=== PATIENT | female | born 1970 | race Caucasian/White ===

== ENCOUNTER → 2017-10-31 13:42 | Outpatient (CLI) | payer BC, SELFPAY ==
--- NOTE | 2017-10-31 13:54 | MR_ITS ---
MR lumbar spine wo con, MR 3-d myelogram/MRCP HISTORY: Mid back pain when bending forward or backward X 3-4 Months. Low back pain X years. Bilateral leg numbness, bursitis in hips. ITS.REASON: LOW BACK PAIN, BILATERAL LOWER EXTREMITY PAIN ORDERING PHYSICIAN: Thai Sharma PATIENT AGE: 47 years COMPARISON: Prior X-Ray 07/10/10 TECHNIQUE: Standard multiplanar multiecho sequences are performed without contrast. 3-D MIP and myelographic images are also rendered and reviewed FINDINGS: There is normal alignment. The spinal cord ends at the T12-L1 level. T11-T12: Mild degenerative disc disease with minimal bulging disc. T12-L1: Unremarkable. L1-L2: Unremarkable. L2-L3: Mild concentric bulging disc. L3-L4: Mild concentric bulging disc along with facet and ligamentum flavum hypertrophy with mild bilateral foraminal narrowing and mild lateral recess narrowing. L4-5: Mild facet and ligamentum flavum hypertrophy. L5-S1: Unremarkable. No disc herniation or canal stenosis. IMPRESSION: 1. Mild lumbar spondylosis as described above with mild bulging disc and facet and ligamentum hypertrophy. Please see above for detailed description at each level. 2. Degenerative disc disease T11-T12 with mild bulging disc. 3. No canal stenosis or disc herniation
== END ==
PROVIDERS: Family Provider Family Medicine; PCP Family Medicine; Visit Provider Physical Medicine & Rehabilitation
DX: M54.5 Low back pain (principal)
CPT/HCPCS: 72148; 76376

== ENCOUNTER → 2020-11-04 16:37 | Outpatient (CLI) | payer OTHER, SELFPAY ==
--- NOTE | 2020-11-04 16:43 | XR_ITS ---
PROCEDURE: XR CHEST 2V CLINICAL HISTORY: pre op, hx of smoking COMPARISON: CR CXR CHEST(2 VIEWS-NOT PORTABLE) from 05/22/2016 CR CXR2V XR chest 2V from 09/19/2018 FINDINGS: The cardiomediastinal silhouette and pulmonary vascularity are within normal limits. The lungs are clear without infiltrates, suspicious nodules, or pleural effusions. No acute bony abnormalities. IMPRESSION: No acute findings. Dictated by: Chucky Rowland MD 11/04/2020 17:15 Chucky Rowland MD in [place] 11/04/2020 17:15
--- NOTE | 2020-11-04 16:43 | XR_ITS ---
PROCEDURE: XR WRIST RT MIN 3V CLINICAL INDICATION: CTS/ right wrist pain COMPARISON: No exams were available for comparison FINDINGS: No fracture or dislocation. No lytic or blastic change. There is normal mineralization. The joint spaces are well-preserved. No significant degenerative/arthritic changes. No erosive changes evident. Other findings:None. IMPRESSION: Negative right wrist Dictated by: Chucky Rowland MD 11/04/2020 17:16 Chucky Rowland MD in [place] 11/04/2020 17:16
--- NOTE | 2020-11-04 16:43 | XR_ITS ---
PROCEDURE: XR WRIST LT MIN 3V CLINICAL INDICATION: left wrist pain/ CTS COMPARISON: No exams were available for comparison FINDINGS: No fracture or dislocation. No lytic or blastic change. There is normal mineralization. The joint spaces are well-preserved. No significant degenerative/arthritic changes. No erosive changes evident. Other findings:None. IMPRESSION: Negative left wrist Dictated by: Chucky Rowland MD 11/04/2020 17:16 Chucky Rowland MD in [place] 11/04/2020 17:16
--- NOTE | 2020-11-04 17:03 | ECG_ITS ---
APPROVED REPORT Exam: Resting ECG HR:70 bpm ECG Measurements Heart Rate 70 AXES NJ 118 P 45 QRSd 84 QRS 19 QT 374 T 44 QTc 403 Conclusion Sinus rhythm with premature supraventricular complexes Otherwise normal ECG Electronically signed by : Tawanda Ramirez, 11/06/2020 07:29:43
[2020-11-04 17:25] LABS: Basophils # 0.1 K/mm3 (0-0.2); Eosinophils # 0.3 K/mm3 (0.0-0.4); Eosinophils % 2.9 % (0.1-12.0); Hematocrit 44.2 % (37.0-47.0); Hemoglobin 14.5 g/dL (12.2-16.2); Lymphocytes # 4.1 K/mm3 (0.7-4.5); Lymphocytes % 43.1 % (10-50); Mean Corpuscular HGB Conc 32.9 g/dL (31.8-35.4); Mean Corpuscular Hemoglobin 28.7 pg (27.0-31.2); Mean Corpuscular Volume 87.3 fl (81-99); Mean Platelet Volume 7.5 fl (7.4-10.4); Monocytes # 0.5 K/mm3 (0.1-1.0); Monocytes % 5.2 % (1.7-9.3); Neutrophils # 4.5 K/mm3 (1.8-7.8); Neutrophils % 47.7 % (37.0-80.0); Platelet Count 405 K/mm3 (142-424); Red Blood Count 5.06 M/mm3 (4.20-5.40); White Blood Count 9.5 K/mm3 (4.8-10.8)
[2020-11-04 18:09] LABS: Chloride 100 mmol/L (98-107); Potassium 4.3 mmoL/L (3.5-5.1); Sodium 138 mmol/L (136-145)
[2020-11-04 18:12] LABS: Alanine Aminotransferase 16 U/L (12-78); Albumin Level 4.6 g/dl (3.5-5.0); Albumin/Globulin Ratio 1.5 (1.1-1.8); Alkaline Phosphatase 127 U/L (38-126); Anion Gap 11.3 mEq/L (5-15); Aspartate Amino Transferase 20 U/L (14-36); Bilirubin,Total 0.3 mg/dl (0.2-1.3); Blood Urea Nitrogen 12 mg/dl (7-17); Calcium 9.7 mg/dl (8.4-10.2); Carbon Dioxide 31 mmol/L (22.0-30.0); Estimated Glomerular Filt Rate 105 ml/min (>60); GFR (African American) 128 ML/MIN (>60); Glucose 85 mg/dl (74-100); Total Protein,Serum 7.6 g/dl (6.3-8.2)
== END ==
PROVIDERS: PCP Internal Medicine Adolescent Medicine; Visit Provider Orthopaedic Surgery
DX: Z01.818 Encounter for other preprocedural examination (principal); G56.02 Carpal tunnel syndrome, left upper limb; G56.01 Carpal tunnel syndrome, right upper limb; M25.732 Osteophyte, left wrist
CPT/HCPCS: 36415; 71046; 73110; 80053; 85025; 93005

== ENCOUNTER → 2020-11-08 15:23 | Outpatient (CLI) | payer OTHER, SELFPAY ==
[2020-11-08 17:32] LABS: Coronavirus 19 IgG Antibody Negative (Negative); Coronavirus 19 IgM Antibody Negative (Negative)
== END ==
PROVIDERS: Visit Provider Orthopaedic Surgery
DX: Z01.812 Encounter for preprocedural laboratory examination (principal); Z11.52 Encounter for screening for COVID-19; M25.532 Pain in left wrist; M25.531 Pain in right wrist; G56.03 Carpal tunnel syndrome, bilateral upper limbs
CPT/HCPCS: 36415; 86328

== ENCOUNTER 2020-11-10 08:45 | Day surgery (SDC) | payer OTHER, SELFPAY ==
[2020-11-10 09:27] VITALS: BP 130/80; PULSE 73; RESP 16; TEMP 36.2; O2SAT 94; BMI 29.2
--- NOTE | 2020-11-10 09:27 | P.PN_ITS ---
[facility] Anesthesia Checklist - Patient Identification Patient Identification: Arm Band - Structural Data Admitted From: Home Planned Operative Procedure/s: Carpal tunnel Consent for Planned Operative Procedure(s) Verified: Yes - NPO Status Verified Time NPO: 00:00 - Airway Assessment C-Spine Mobility Assessed: Yes TMJ Mobility Assessed: Yes Dentition: Edentulous - Neurological Assessment Level of Consciousness: Awake, Alert Hx Seizures: No Numbness or tingling in extremities: Yes - Anesthesia Plan Anesthesia Risk discussed: Yes Anesthesia Plan: Verified ASA Class: II Anesthesia Type: MAC w/Block [facility] History I have reviewed the patient's past medical history: Yes Medical History: Reports:: Gastroesophageal Reflux Disease(GERD), Hypertension *Have you ever received a pneumonia vaccine?: No *Have you received a flu vaccine this season?: No Anesthesia experience/problems:: None Other Surgeries: Yes: No Previous Surgery - *Social History Smoking Status: Current every day smoker Tobacco Type: cigarettes # Packs/Day (cigarettes): 2 Alcohol Intake: never Substance Use Type: denies use *Occupational Status:: other *Travel in the last 8 weeks: None Family Hx:: No significant family history
[2020-11-10 11:17] VITALS: BP 160/90; PULSE 90; RESP 18; TEMP 36.1; O2SAT 91
[2020-11-10 11:27] VITALS: BP 139/86; PULSE 86; RESP 18; O2SAT 96
[2020-11-10 11:37] VITALS: BP 146/87; PULSE 79; RESP 18; O2SAT 95
--- NOTE | 2020-11-10 11:39 | HMH.OPNOTE ---
Date of procedure: 11/10/20 Pre-op Diagnosis:: Carpal tunnel syndrome, left Post-op Diagnosis:: Same Procedure performed:: Open carpal tunnel release, left wrist Surgeon:: Cole Flanagan MD Plywood Scarfer Tender(s):: Afsaneh Gonzales BLACK TOP PAVER OPERATOR:: Other (Jayant Gamez) Anesthesia: regional (Supraclavicular nerve block) Estimated blood loss (mL): 2 Clinical Note:: Patient is a 50-year-old female with bilateral carpal tunnel syndrome with long-standing symptoms. Bilateral EMG/NCV studies confirmed carpal tunnel syndrome on both sides- moderate/severe carpal tunnel syndrome on the left and moderate carpal tunnel syndrome on the right. Her symptoms are worse on the left side than the right. Patient is having significant and disabling symptoms and has failed to respond adequately to conservative management.. Therefore, carpal tunnel release surgery is necessary to relieve symptoms, preserve the remaining fibers of the median nerve, improve function and decrease the pain, paresthesias and weakness and to prevent permanent nerve damage. 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 She has history of hypertension and is a chronic smoker. Patient elected to have the surgery on the left side to begin with. Please refer to my office note for full details. Operative findings:: The intraoperative findings showed the median nerve to be very tightly compressed and hyperemic. The flexor retinaculum was noted to be thick and tight. There was mild synovitis in the carpal tunnel. There was no evidence of any space-occupying lesions within the carpal tunnel. Operative note:: On the day of the surgery the patient was met in the preoperative area. Patient was positively identified and the operative site was marked and initialed by me. A physical examination was performed and the chart was updated. I again discussed the procedure, risks and benefits and alternatives with the patient. The complications discussed include but are not limited to- bleeding, injury to nerves, blood vessels and tendons, infection, wound dehiscence, incomplete relief/continued pain, persistent numbness, palmar hypersensitivity, pillar pain, DVT/PE, complex regional pain syndrome(CRPS), worsening of nerve damage, failure of the condition to improve, incomplete return of function, bowstringing of tendons, weakness of expressive therapist strength, recurrence, failure of the surgery to accomplish the desired goals, decreased use of the hand, loss of use of the arm, loss of the hand or arm, loss of life. Likely need for further surgery in the future has been discussed. I've indicated to the patient where the proposed incision would be made and also discussed the possibility of extending the incision if needed to accomplish an effective release. We have discussed how the goal of surgery is to protect the fibers which have remained healthy and hopefully reverse the symptoms of the fibers which are compromised but still recoverable. We have explained that, fibers that are permanently damaged will not recover. Patient asked appropriate questions and all have been answered by me. Patient wished to proceed with the surgery. Patient understood the risks, agreed to proceed with surgery, and no guarantees or assurances were given or implied. The patient was brought to the operating room and placed supine on the operating table. The left upper extremity was placed over a side table. All the bony prominences were well-padded. The patient had a supraclavicular nerve block anesthesia and IV sedation administered by the metal furniture repairer. A well-padded tourniquet cuff was placed over the upper arm. The left upper extremity was prepped and draped in the usual sterile fashion. A preprocedure timeout was performed as per hospital policy. Administration of prophylactic antibiotics was confirmed with the metal furniture repairer. The skin incision was marked using the Ya's landmarks, just ulnar to the thenar crease. The limb
[2020-11-10 12:15] VITALS: BP 133/91; PULSE 71; RESP 18; O2SAT 96
== END 2020-11-10 12:16 | disposition home or self-care (01) ==
LOC: OR 08:46
PROVIDERS: PCP Internal Medicine Adolescent Medicine; Visit Provider Orthopaedic Surgery
PROC: (CPT 64721; principal; 2020-11-10 09:45)
DX: G56.02 Carpal tunnel syndrome, left upper limb (principal)
CPT/HCPCS: 64721; 96374; J0670

== ENCOUNTER 2021-01-07 20:36 | Observation (INO) | payer OTHER, SELFPAY ==
[2021-01-07 20:36] VITALS: BP 113/78; PULSE 113; RESP 19; TEMP 36.7; O2SAT 98; BMI 30.1
[2021-01-07 21:03] VITALS: BP 100/61; PULSE 107; RESP 18; O2SAT 97
--- NOTE | 2021-01-07 21:18 | CT_ITS ---
PROCEDURE INFORMATION: Exam: CT Abdomen And Pelvis With Contrast Exam date and time: 01/07/2021 9:18 PM Age: 50 years old Clinical indication: Bloating and constipation and other: Rectal bleeding; Prior surgery; Surgery date: 6+ months; Surgery type: Gallbladder, hysterectomy, csection; Patient HX: PT was constipated and was bloated, took laxitive and supository, since thin has had rectal bleeding, still has some bloating; Additional info: Rectal bleeding with pain and nausea TECHNIQUE: Imaging protocol: Computed tomography of the abdomen and pelvis with contrast. Radiation optimization: All CT scans at this facility use at least one of these dose optimization techniques: automated exposure control; mA and/or kV adjustment per patient size (includes targeted exams where dose is matched to clinical indication); or iterative reconstruction. Contrast material: ISOVUE; Contrast volume: 75 ml; Contrast route: IV; Other contrast: Oral, gastro; COMPARISON: ABDPELW/O CT ABD PELVIS W/O CONTRAST 01/05/2017 9:44 AM FINDINGS: Lungs: The visualized lung bases are clear. Pleural spaces: There are no pleural effusions. No pneumothorax. The Heart: The visualized portions of the heart are unremarkable. There is no evidence of pericardial fluid collections. Liver: There is diffuse decrease in hepatic parenchymal density consistent with fatty infiltration. There are a few subcentimeter liver hypodensities that are too small for definitive characterization. Gallbladder and bile ducts: There has been a cholecystectomy. There is a mild, expected degree of common bile duct dilation. Pancreas: The pancreas is normal. Spleen: The spleen demonstrates punctate calcifications, consistent with remote granulomatous organism exposure. Adrenal glands: The adrenal glands are normal. Kidneys and ureters: The kidneys are normal. Stomach and bowel: The stomach is normal. Unopacified loops of small bowel within range of normal. There is prominent colonic wall thickening involving predominantly the sigmoid colon with extension into descending colon with associated pericolonic inflammatory fat stranding. Findings suggest colitis. Cannot exclude other entities including ischemia, neoplastic process or potentially pseudomembranous colitis in the appropriate clinical setting. Correlate clinically. Appendix: A normal appendix is identified. Intraperitoneal space: No evidence of intraperitoneal free air. No significant free fluid. No focal fluid collections to indicate abscess. The Vasculature: The aorta and iliac arteries demonstrate mild atherosclerotic calcification. Lymph nodes: There is no evidence of pathologic adenopathy. Urinary bladder: The bladder is decompressed. Reproductive: The uterus is either atrophic or absent. No adnexal cysts or masses are identified. The left ovary is normal. The right ovary is normal. Bones/joints: The thoracolumbar spine demonstrates mild degenerative changes at multiple levels. There is no evidence of acute fracture. Soft tissues: There is a small fat-containing umbilical hernia. IMPRESSION: 1. Prominent colonic wall thickening involving predominantly the sigmoid colon with extension into descending colon with associated pericolonic inflammatory fat stranding. Findings suggest colitis. Cannot exclude other entities including ischemia, neoplastic process or potentially pseudomembranous colitis in the appropriate clinical setting. 2. Fatty hepatic infiltration. 3. Small fat-containing umbilical hernia.
--- NOTE | 2021-01-07 21:20 | PC.NURSE ---
Notified Radiology that pt completed oral contrast at 462, MD Joiner would like to wait an additional [address] time. Time for scan will be [id number].
[2021-01-07 21:22] LABS: Basophils # 0.1 K/mm3 (0-0.2); Basophils % 0.4 % (0.1-2.0); Eosinophils # 0.1 K/mm3 (0.0-0.4); Eosinophils % 0.8 % (0.1-12.0); Hematocrit 43.6 % (37.0-47.0); Hemoglobin 14.7 g/dL (12.2-16.2); Lymphocytes # 4.2 K/mm3 (0.7-4.5); Lymphocytes % 23.5 % (10-50); Mean Corpuscular HGB Conc 33.7 g/dL (31.8-35.4); Mean Corpuscular Hemoglobin 29.6 pg (27.0-31.2); Mean Corpuscular Volume 87.8 fl (81-99); Monocytes # 0.8 K/mm3 (0.1-1.0); Monocytes % 4.4 % (1.7-9.3); Neutrophils # 12.6 K/mm3 (1.8-7.8); Platelet Count 396 K/mm3 (142-424); Red Blood Count 4.97 M/mm3 (4.20-5.40); Red Cell Distribution Width 14.2 % (11.5-17.5); White Blood Count 17.7 K/mm3 (4.8-10.8)
[2021-01-07 21:25] LABS: MANUAL DIFFERENTIAL MANUAL DIFFERENTIAL (MANUAL DIFF)
[2021-01-07 21:28] LABS: Alanine Aminotransferase 20 U/L (12-78); Albumin Level 4.6 g/dl (3.5-5.0); Albumin/Globulin Ratio 1.4 (1.1-1.8); Alkaline Phosphatase 114 U/L (38-126); Amylase 52 U/L (30-110); Anion Gap 14.2 mEq/L (5-15); Aspartate Amino Transferase 21 U/L (14-36); Bilirubin,Total 0.4 mg/dl (0.2-1.3); Blood Urea Nitrogen 18 mg/dl (7-17); Calcium 9.4 mg/dl (8.4-10.2); Carbon Dioxide 27 mmol/L (22.0-30.0); Chloride 100 mmol/L (98-107); Creatinine Clearance Estimated 54 mL/min (50-200); Estimated Glomerular Filt Rate 37 ml/min (>60); GFR (African American) 44 ML/MIN (>60); Globulin 3.2 g/dL (1.3-3.2); Glucose 145 mg/dl (74-100); Lipase 26 U/L (23-300); Potassium 4.2 mmoL/L (3.5-5.1); Sodium 137 mmol/L (136-145); Total Protein,Serum 7.8 g/dl (6.3-8.2)
[2021-01-07 21:33] LABS: C-Reactive Protein 59.7 mg/L (0-4)
--- NOTE | 2021-01-07 21:41 | HMH.EDGIBL ---
ED Disposition Clinical Impression: Colitis, SIRS (systemic inflammatory response syndrome), SUSANNE (acute kidney injury) Disposition: Admitted As Inpatient Condition on Discharge: Good - Critical Care Critical Care Time: No Attestation: On 01/07/21, the high probability of a clinically significant, sudden or life threatening deterioration of the following system(s) required my full and direct attention, intervention and personal management. The time I documented below is in addition to time spent performing reported procedures but includes the following listed in this critical care notation. Medical Decision Making - Medical Records Medical records reviewed: Yes: I reviewed the patient's medical records. - Gage Inquiry Pt receiving controlled substance: No Vital Signs: 01/07/21 20:36 01/07/21 21:03 01/08/21 01:37 Temperature 98.0 F Temperature Source Oral Pulse Rate 107 H Pulse Rate [Right] 113 H Respiratory Rate 19 18 Blood Pressure 100/61 L 109/63 L Blood Pressure [Right Arm] 113/78 Blood Pressure Mean 78 Blood Pressure Mean [Right Arm] 89 02 Sat by Pulse Oximetry 98 97 Oxygen Delivery Method Room Air Room Air 01/08/21 02:00 Temperature Temperature Source Pulse Rate 84 Pulse Rate [Right] Respiratory Rate Blood Pressure 121/85 Blood Pressure [Right Arm] Blood Pressure Mean 97 Blood Pressure Mean [Right Arm] 02 Sat by Pulse Oximetry 96 Oxygen Delivery Method Room Air - Lab Data Lab results reviewed: Yes: I reviewed the patient's lab results. Lab Results 01/07/21 21:10: WBC 17.7 H, RBC 4.97, Hgb 14.7, Hct 43.6, MCV 87.8, MCH 29.6, MCHC 33.7, RDW 14.2, Plt Count 396, MPV 8.0, Neut % (Auto) 71.0, Lymph % (Auto) 23.5, [place] % (Auto) 4.4, Eos % (Auto) 0.8, Baso % (Auto) 0.4, Neut # (Auto) 12.6 H, Lymph # (Auto) 4.2, [place] # (Auto) 0.8, Eos # (Auto) 0.1, Baso # (Auto) 0.1, Total Counted 100, Neutrophils % (Manual) 69, Band Neutrophils % 1.0, Lymphocytes % (Manual) 14, Atypical Lymphs % 9.0, Monocytes % (Manual) 7, Platelet Estimate Normal, RBC Morphology Normal, ESR 21 01/07/21 21:10: Sodium 137, Potassium 4.2, Chloride 100, Carbon Dioxide 27, Anion Gap 14.2, BUN 18 H, Creatinine 1.50 H, Estimated Creat Clear 54, Estimated GFR 37 L, Est GFR ( Amer) 44 L, Glucose 145 H, Calcium 9.4, Total Bilirubin 0.4, AST 21, ALT 20, Alkaline Phosphatase 114, C-Reactive Protein 59.7 H, Total Protein 7.8, Albumin 4.6, Globulin 3.2, Albumin/Globulin Ratio 1.4, Amylase 52, Lipase 26, Procalcitonin 0.261 01/07/21 23:35: Urine Color Yellow, Urine Appearance Cloudy, Urine pH 5.5, Ur Specific [place] 1.020, Urine Protein Trace, Urine Glucose (UA) Negative, Urine Ketones Negative, Urine Blood Trace-i, Urine Nitrate Negative, Urine Bilirubin Negative, Urine Urobilinogen 0.2, Ur Leukocyte Esterase Negative, Urine RBC Occasional, Urine WBC 5-10, Ur Squamous Epith Cells 10-20, Calcium Oxalate Crystal Trace, Urine Bacteria 2+, Hyaline Casts 3-5, Urine Mucus 2+ 01/07/21 23:35: Stl Aeromonas (PCR) Not detected, Stl C. cayetanensis PCR Not detected, Stool Rotavirus (PCR) Not detected, Stl Adenov F 40/41 PCR Not detected, Stool Astrovirus (PCR) Not detected, Stool Campylobacter PCR Not detected, Stl C.difficile Tox PCR Not detected, Stool Cryptosporidium PCR Not detected, Stl E.coli Shiga Tox PCR Not detected, Stool E coli O157 PCR Not detected, Stl Enterotoxigenic E PCR Not detected, Stool EPEC (PCR) Not detected, Stool EAEC (PCR) Not detected, Stl E. histolytica PCR Not detected, Stool Giardia Lamblia PCR Not detected, Stool Salmonella PCR Not detected, Stool Sapovirus (PCR) Not detected, Stl P. shigelloides PCR Not detected, Stl Shigella/EIEC PCR Not detected, St Y.enterocolitica PCR Not detected, Stool Vibrio (PCR) Not detected, Stl Vibrio cholerae PCR Not detected, Stl Norovirus GI/GII PCR Not detected 01/07/21 23:35: Stool Occult Blood Positive A 01/08/21 01:40: SARS-CoV-2 (PCR) Not detected, Influenza A Untype (PCR) Not det
[2021-01-07 21:43] LABS: Lymphocytes % 14 % (10-50); Monocytes % 7 % (2-9); Neutrophils % 69 % (42-76); Platelet Estimate Normal; RBC Morphology Normal; Total Cells Counted 100
--- NOTE | 2021-01-07 21:45 | PC.NURSE ---
pt has taken off bp cuff d/t back and forth to bathroom
[2021-01-07 21:47] LABS: Procalcitonin 0.261 ng/mL (0.0-2.0)
[2021-01-07 21:50] LABS: Erythrocyte Sedimentation Rate 21 mm/hr (0-30)
[2021-01-07 23:42] LABS: Adenovirus F 40/41, stool Not Detected (NotDetected); Astrovirus Not Detected (NotDetected); Campylobacter Not Detected (NotDetected); Clostridium Difficile A/B, PCR Not Detected (NotDetected); Cryptosporidium Not Detected (NotDetected); Cyclospora Cayetanesis Not Detected (NotDetected); Entamoeba histolytica Not Detected (NotDetected); Enteroaggregative E coli Not Detected (NotDetected); Enteropathogenic E coli Not Detected (NotDetected); Enterotoxigenic E coli Not Detected (NotDetected); Giardia lamblia Not Detected (NotDetected); Microscopic, Urine URINE MICROSCOPIC (MICROSCOPIC); Norovirus Not Detected (NotDetected); Plesimonas Shigalloides, PCR Not Detected (NotDetected); Rotavirus A Not Detected (NotDetected); Salmonella, PCR Not Detected (NotDetected); Sapovirus Not Detected (NotDetected); Shiga-like toxin E coli Not Detected (NotDetected); Shigella Enterovasive E coli Not Detected (NotDetected); Vibrio Cholerae Not Detected (NotDetected); Vibrio, PCR Not Detected (NotDetected); Yersinia Entercolitica, PCR Not Detected (NotDetected)
[2021-01-07 23:45] LABS: Appearance,Urine CLOUDY (Clear); Bilirubin,Urine Negative (Negative); Blood, Urine TRACE-I (Negative); Color,Urine YELLOW (Yellow); Glucose,Urine (UA) Negative (Negative); Ketones,Urine Negative (Negative); Leukocyte Esterase,Urine Negative (Negative); Nitrate,Urine Negative (Negative); PH,Urine 5.5 (5.0-8.5); Protein,Urine TRACE (Negative); Urobilinogen,Urine 0.2 EU/dl (0.2)
[2021-01-07 23:51] LABS: Occult Blood,Stool Positive (Negative)
[2021-01-07 23:54] LABS: Bacteria,Urine 2+ /lpf; Mucus,Urine 2+ /lpf; RBC,Urine Occasional #/hpf (0-3)
[2021-01-07 23:55] LABS: Calcium Oxalate Crystals,Urine Trace /lpf
[2021-01-08] VITALS (9 sets, daily range): BP systolic 103–136; BP diastolic 59–89; PULSE 71–85; RESP 16–18; TEMP 36.6–36.9; O2SAT 96–100; BMI 33.3
--- NOTE | 2021-01-08 01:32 | PC.NURSE ---
Dr. Nair paged for Dr. Joiner
--- NOTE | 2021-01-08 01:33 | PC.NURSE ---
md speaking with dr walter covering dr tan at this time re: results. spoke with and discussed possible admission.
[2021-01-08 01:46] LABS: Coronavirus 19, PCR Not Detected (NotDetected); Influenza A, PCR Not Detected (NotDetected); Influenza B, PCR Not Detected (NotDetected)
[2021-01-08 02:04] LABS: Lactic Acid 0.7 mmol/L (0.7-2.1)
--- NOTE | 2021-01-08 02:55 | PC.NURSE ---
pt d/c via wheelchair to OB floor, report given to Dorinda Abdul RN
--- NOTE | 2021-01-08 06:57 | PC.NURSE ---
PT REPORTS SHE HAS HAD A COUPLE DIARRHEA STOOLS WITH BLOOD A COUPLE TIMES THIS MORNING,RATES HER PAIN AN 8 NOW. ON SCALE OF 0-10 MEDICATED WITH MORPHINE 4MG IVP
[2021-01-08 07:18] LABS: Basophils # 0.1 K/mm3 (0-0.2); Basophils % 0.3 % (0.1-2.0); Eosinophils # 0.2 K/mm3 (0.0-0.4); Eosinophils % 1.1 % (0.1-12.0); Hematocrit 38.3 % (37.0-47.0); Lymphocytes # 4.6 K/mm3 (0.7-4.5); Lymphocytes % 31.6 % (10-50); Mean Corpuscular HGB Conc 32.9 g/dL (31.8-35.4); Mean Corpuscular Hemoglobin 29.2 pg (27.0-31.2); Mean Corpuscular Volume 88.8 fl (81-99); Mean Platelet Volume 7.4 fl (7.4-10.4); Monocytes # 0.7 K/mm3 (0.1-1.0); Monocytes % 4.6 % (1.7-9.3); Neutrophils % 62.4 % (37.0-80.0); Platelet Count 301 K/mm3 (142-424); Red Blood Count 4.31 M/mm3 (4.20-5.40); Red Cell Distribution Width 14.4 % (11.5-17.5); White Blood Count 14.5 K/mm3 (4.8-10.8)
[2021-01-08 07:31] LABS: Hemoglobin 12.6 g/dL (12.2-16.2)
[2021-01-08 07:40] LABS: Chloride 106 mmol/L (98-107); Potassium 4.6 mmoL/L (3.5-5.1); Sodium 137 mmol/L (136-145)
[2021-01-08 07:43] LABS: Anion Gap 10.6 mEq/L (5-15); Blood Urea Nitrogen 16 mg/dl (7-17); Carbon Dioxide 25 mmol/L (22.0-30.0); Creatinine Clearance Estimated 112 mL/min (50-200); Estimated Glomerular Filt Rate 76 ml/min (>60); GFR (African American) 92 ML/MIN (>60); Glucose 86 mg/dl (74-100)
[2021-01-08 07:44] LABS: Calcium 8.4 mg/dl (8.4-10.2)
--- NOTE | 2021-01-08 08:03 | HMH.HP ---
*Admission Date: 01/07/21 *Chief complaint: Abdominal pain with rectal bleeding *History of present illness: 50-year-old white female who presented to the hospital with a couple of days of left lower quadrant pain that was accelerating along with some straining at stool and some bright red blood per rectum. In the emergency department she was found to have no evidence of significant blood loss but was found to have colitis on CT scan of abdomen with fairly significant sigmoid thickening. Admitted to hospital for IV antibiotics, n.p.o. status and further evaluation. This morning she states she feels better and is hungry. [facility] History I have reviewed the patient's past medical history: Yes Medical History: Reports:: Gastroesophageal Reflux Disease(GERD), Hypertension Denies:: Cancer, Diabetes Mellitus Type 1, Diabetes Mellitus Type 2, Internal Pacemaker, MRSA, Seizures *Have you ever received a pneumonia vaccine?: No *Have you received a flu vaccine this season?: No Other Medical History: Denies: Blood Transfusion Reaction Other Surgeries: Yes: No Previous Surgery. No: Pacemaker Amputation: No - *Social History Last grade of school completed: GED Smoking Status: Current every day smoker Tobacco Type: cigarettes # Packs/Day (cigarettes): 1 Alcohol Intake: never Substance Use Type: denies use *Occupational Status:: unemployed, disabled Housing: house Household Members: spouse, children *Travel in the last 8 weeks: None Family Hx:: No significant family history Review of Systems - Review of Systems Review of systems:: pertinent systems reviewed and negative unless documented below - *Neurologic Denies seizure-like activity Meds Home Medications Medication Instructions Recorded Confirmed Type amitriptyline 50 mg tablet 50 mg PO DAILY tab 10/25/20 01/07/21 History hydroxyzine HCl 25 mg tablet 25 mg PO DAILY tab 10/25/20 01/07/21 History lisinopril 10 mg tablet 10 mg PO DAILY tab 10/25/20 01/07/21 History Allergies Allergy/AdvReac Type Severity Reaction Status Date / Time codeine [CODEINE] Allergy Unknown Verified 11/29/20 13:54 Exam Vital signs and Labs for Last 24 Hours: Temp Pulse Resp BP Pulse Ox 98.4 F 81 18 116/59 L 97 01/08/21 03:15 01/08/21 03:15 01/08/21 03:15 01/08/21 03:15 01/08/21 04:00 Laboratory Results - last 24 hr 01/07/21 21:10: WBC 17.7 H, RBC 4.97, Hgb 14.7, Hct 43.6, MCV 87.8, MCH 29.6, MCHC 33.7, RDW 14.2, Plt Count 396, MPV 8.0, Neut % (Auto) 71.0, Lymph % (Auto) 23.5, [place] % (Auto) 4.4, Eos % (Auto) 0.8, Baso % (Auto) 0.4, Neut # (Auto) 12.6 H, Lymph # (Auto) 4.2, [place] # (Auto) 0.8, Eos # (Auto) 0.1, Baso # (Auto) 0.1, Total Counted 100, Neutrophils % (Manual) 69, Band Neutrophils % 1.0, Lymphocytes % (Manual) 14, Atypical Lymphs % 9.0, Monocytes % (Manual) 7, Platelet Estimate Normal, RBC Morphology Normal, ESR 01/07/21 21:10: Sodium 137, Potassium 4.2, Chloride 100, Carbon Dioxide 27, Anion Gap 14.2, BUN 18 H, Creatinine 1.50 H, Estimated Creat Clear 54, Estimated GFR 37 L, Est GFR ( Amer) 44 L, Glucose 145 H, Calcium 9.4, Total Bilirubin 0.4, AST 21, ALT 20, Alkaline Phosphatase 114, C-Reactive Protein 59.7 H, Total Protein 7.8, Albumin 4.6, Globulin 3.2, Albumin/Globulin Ratio 1.4, Amylase 52, Lipase 26, Procalcitonin 0.261 01/07/21 23:35: Urine Color Yellow, Urine Appearance Cloudy, Urine pH 5.5, Ur Specific [place] 1.020, Urine Protein Trace, Urine Glucose (UA) Negative, Urine Ketones Negative, Urine Blood Trace-i, Urine Nitrate Negative, Urine Bilirubin Negative, Urine Urobilinogen 0.2, Ur Leukocyte Esterase Negative, Urine RBC Occasional, Urine WBC 5-10, Ur Squamous Epith Cells 10-20, Calcium Oxalate Crystal Trace, Urine Bacteria 2+, Hyaline Casts 3-5, Urine Mucus 2+ 01/07/21 23:35: Stl Aeromonas (PCR) Not detected, Stl C. cayetanensis PCR Not detected, Stool Rotavirus (PCR) Not detected, Stl Adenov F 40/41 PCR Not detected, Stool Astrovirus (PCR) Not detected, Stool C
--- NOTE | 2021-01-08 08:30 | PC.NURSE ---
Paged Dr Rush for consult on this pt.
--- NOTE | 2021-01-08 09:34 | HMH.PHAVTE ---
[facility] Pharmacy VTE Monitoring - Patient Demographics Admission date: 01/07/21 Report Date: 01/08/21 Time: 09:34 Allergies/Adverse Reactions: Patient Allergies codeine [CODEINE] Allergy (Unknown, Verified 11/29/20 13:54) Height: 1.6 m Weight: 85.275 kg Patient Problems: Current Active Problems Colitis (Acute) SIRS (systemic inflammatory response syndrome) (Acute) SUSANNE (acute kidney injury) (Acute) Diarrhea (Acute) - VTE Risk Labs: VTE Related Lab Results Hgb 12.6 g/dL (12.2-16.2) D 01/08/21 06:10 Hct 38.3 % (37.0-47.0) 01/08/21 06:10 Plt Count 301 K/mm3 (142-424) 01/08/21 06:10 BUN 16 mg/dl (7-17) 01/08/21 06:10 Creatinine 0.80 mg/dl (0.52-1.04) D 01/08/21 06:10 Estimated Creat Clear 112 mL/min (50-200) 01/08/21 06:10 Was VTE Risk Assessment Performed: Yes VTE Score: 4 VTE Risk Level: Low Risk Clinical Trial Participant: No - Prophylaxis VTE Prophylaxis Ordered?: Yes Types of VTE Prophylaxis: TEDS Knee High
--- NOTE | 2021-01-08 14:13 | HMH.GSCON ---
*Admission Date: 01/07/21 *Reason for consult:: Colitis. *History of present illness: Ms. Gannon is a 50-year-old female that presents to [facility] with complaints of left lower quadrant abdominal pain. Experienced constipation and near obstipation for approximately 5 to 6 days. Subsequent bowel movement with bright red blood per rectum. Abdominal distention noted. Subsequently admitted to [facility]. Today is hospital day #1. Reports feeling somewhat better after IV fluids and IV antibiotics. Still complains of abdominal distention. Multiple bowel movements today. Bloody diarrhea. Patient reports family history of Crohn's disease; brother. Personal history includes chronic constipation and alternating bowel movements. Attributed to irritable bowel syndrome although this has not been a diagnosis of exclusion. No prior colonoscopy. No prior abdominal surgery. Review of Systems - Review of Systems Review of systems:: pertinent systems reviewed and negative unless documented below - *Neurologic Denies seizure-like activity [facility] History Medical History: Reports:: Gastroesophageal Reflux Disease(GERD), Hypertension Denies:: Cancer, Diabetes Mellitus Type 1, Diabetes Mellitus Type 2, Internal Pacemaker, MRSA, Seizures *Have you ever received a pneumonia vaccine?: No *Have you received a flu vaccine this season?: No Other Medical History: Denies: Blood Transfusion Reaction Other Surgeries: Yes: No Previous Surgery. No: Pacemaker Amputation: No - *Social History Last grade of school completed: GED Smoking Status: Current every day smoker Tobacco Type: cigarettes # Packs/Day (cigarettes): 1 Alcohol Intake: never Substance Use Type: denies use *Occupational Status:: unemployed, disabled Housing: house Household Members: spouse, children *Travel in the last 8 weeks: None Family Hx:: No significant family history Meds Home Medications Medication Instructions Recorded Confirmed Type amitriptyline 50 mg tablet 50 mg PO DAILY tab 10/25/20 01/07/21 History hydroxyzine HCl 25 mg tablet 25 mg PO DAILY tab 10/25/20 01/07/21 History lisinopril 10 mg tablet 10 mg PO DAILY tab 10/25/20 01/07/21 History Allergies Allergy/AdvReac Type Severity Reaction Status Date / Time codeine [CODEINE] Allergy Unknown Verified 11/29/20 13:54 Exam Vital signs and Labs for Last 24 Hours: Temp Pulse Resp BP Pulse Ox 98.3 F 80 18 127/84 97 01/08/21 12:00 06/20/21 12:00 01/08/21 12:00 01/08/21 12:00 01/08/21 12:00 Laboratory Results - last 24 hr 01/07/21 21:10: WBC 17.7 H, RBC 4.97, Hgb 14.7, Hct 43.6, MCV 87.8, MCH 29.6, MCHC 33.7, RDW 14.2, Plt Count 396, MPV 8.0, Neut % (Auto) 71.0, Lymph % (Auto) 23.5, [place] % (Auto) 4.4, Eos % (Auto) 0.8, Baso % (Auto) 0.4, Neut # (Auto) 12.6 H, Lymph # (Auto) 4.2, [place] # (Auto) 0.8, Eos # (Auto) 0.1, Baso # (Auto) 0.1, Total Counted 100, Neutrophils % (Manual) 69, Band Neutrophils % 1.0, Lymphocytes % (Manual) 14, Atypical Lymphs % 9.0, Monocytes % (Manual) 7, Platelet Estimate Normal, RBC Morphology Normal, ESR 21 01/07/21 21:10: Sodium 137, Potassium 4.2, Chloride 100, Carbon Dioxide 27, Anion Gap 14.2, BUN 18 H, Creatinine 1.50 H, Estimated Creat Clear 54, Estimated GFR 37 L, Est GFR ( Amer) 44 L, Glucose 145 H, Calcium 9.4, Total Bilirubin 0.4, AST 21, ALT 20, Alkaline Phosphatase 114, C-Reactive Protein 59.7 H, Total Protein 7.8, Albumin 4.6, Globulin 3.2, Albumin/Globulin Ratio 1.4, Amylase 52, Lipase 26, Procalcitonin 0.261 01/07/21 23:35: Urine Color Yellow, Urine Appearance Cloudy, Urine pH 5.5, Ur Specific Granite 1.020, Urine Protein Trace, Urine Glucose (UA) Negative, Urine Ketones Negative, Urine Blood Trace-i, Urine Nitrate Negative, Urine Bilirubin Negative, Urine Urobilinogen 0.2, Ur Leukocyte Esterase Negative, Urine RBC Occasional, Urine WBC 5-10, Ur Squamous Epith Cells 10-20, Calcium Oxalate Crystal Trace, Urine Bacteria 2+, Hyaline
[2021-01-08 14:26] LABS: Adenovirus F 40/41, stool Not Detected (NotDetected); Astrovirus Not Detected (NotDetected); Campylobacter Not Detected (NotDetected); Clostridium Difficile A/B, PCR Not Detected (NotDetected); Cryptosporidium Not Detected (NotDetected); Cyclospora Cayetanesis Not Detected (NotDetected); Entamoeba histolytica Not Detected (NotDetected); Enteroaggregative E coli Not Detected (NotDetected); Enteropathogenic E coli Not Detected (NotDetected); Enterotoxigenic E coli Not Detected (NotDetected); Giardia lamblia Not Detected (NotDetected); Norovirus Not Detected (NotDetected); Plesimonas Shigalloides, PCR Not Detected (NotDetected); Rotavirus A Not Detected (NotDetected); Salmonella, PCR Not Detected (NotDetected); Sapovirus Not Detected (NotDetected); Shiga-like toxin E coli Not Detected (NotDetected); Shigella Enterovasive E coli Not Detected (NotDetected); Vibrio Cholerae Not Detected (NotDetected); Vibrio, PCR Not Detected (NotDetected); Yersinia Entercolitica, PCR Not Detected (NotDetected)
--- NOTE | 2021-01-08 16:41 | PC.NURSE ---
1625 RN reassessment completed at this time. Pt has kept a log of her bowel movements today and has recorded several loose bowel movements as well as several voids. Pt reports that BM is now brown and nothing but water. Pt is c/o irritation to her bottom, will get aquaphor and witch sandrine pads ordered for pt. Abd is slightly distended and moderately tender with hyperactive BS. Pt has been medicated x2 this shift with morphine per EMAR with good relief. Pt had c/o nausea x1 today but did not require medication. Pt is tolerating regular diet well. Lung sounds with scattered rhonchi, no c/o soa or difficulty breathing. IV patent and infusing in R AC. TEDS to BLE. Pt has been offered a shower and bed change, reports that she will let staff know when she is ready. Pt recently tearful over abdominal pain and number of BMs she has had today. RN was able to talk with pt and console her. Will continue to monitor.
--- NOTE | 2021-01-08 20:10 | PC.NURSE ---
PT SISTER CAME OUT TO DESK AND ASKED FOR ME TO COME INTO ROOM,UPON ENTERING ROOM PT WAS CRYING AND UPSET AND WAS TALKING TO HER AND ASKING HIM WHY HE HAD NOT COME TO SEE HER TODAY,PT VERY UPSET,HUNG UP ON HER .PT ASKED IF SHE COULD GO OUTSIDE FOR SOME FRESH AIR,TOLD HER THAT WE WAS LOCKED DOWN UNIT AND THAT IT WAS NOT ALOUD,PT REPORTS SHE TOOK HER NICOTINE PATCH OFF BECAUSE IT WAS NOT WORKING,SHE REPORTS SHE HAS BEEN VERY EMOTIONAL BECAUSE NO ONE HAS BEEN HERE TODAY AND IT BEING FATHERS DAY,NOT BEING ABLE TO GO TO HER MOM AND DADS GRAVE.OFFERED TO CALL THE DOCTOR FOR SOMETHING FOR HER NERVES AND SHE FINALLY AGREED,PT REPORTS HER ABD.IS HURTING SOME BUT DENIES ANYTHING FOR PAIN
[2021-01-09 01:30] VITALS: BP 92/50; PULSE 67; RESP 16; TEMP 36.6; O2SAT 97
[2021-01-09 04:30] VITALS: BP 104/59; PULSE 72; RESP 18; TEMP 36.6; O2SAT 93
--- NOTE | 2021-01-09 06:00 | PC.NURSE ---
PT HAS SLEPT WELL TONIGHT,SHE HAD SEVERAL BOWEL MOVEMENTS DIARREHEA FIRST OF SHIFT AND JUST HAD ONE THAT WAS SOFT AND BROWN,PT REPORTS A LOT OF GAS WITH IT.ABD,DISTENDED,MEDICATED 2X WITH MORPHINE.LUNGS CLEAR THROUGHTOUT,RESP.EVEN AND UNLABORED,BOWEL SOUNDS HYPERACTIVE
[2021-01-09 06:30] LABS: Basophils # 0.1 K/mm3 (0-0.2); Basophils % 0.4 % (0.1-2.0); Eosinophils # 0.2 K/mm3 (0.0-0.4); Hematocrit 36.6 % (37.0-47.0); Hemoglobin 11.9 g/dL (12.2-16.2); Lymphocytes # 3.5 K/mm3 (0.7-4.5); Lymphocytes % 32.4 % (10-50); Mean Corpuscular HGB Conc 32.6 g/dL (31.8-35.4); Mean Corpuscular Hemoglobin 29.3 pg (27.0-31.2); Mean Platelet Volume 7.6 fl (7.4-10.4); Monocytes # 0.5 K/mm3 (0.1-1.0); Monocytes % 4.4 % (1.7-9.3); Neutrophils # 6.5 K/mm3 (1.8-7.8); Neutrophils % 60.8 % (37.0-80.0); Platelet Count 291 K/mm3 (142-424); Red Blood Count 4.07 M/mm3 (4.20-5.40); Red Cell Distribution Width 14.1 % (11.5-17.5); White Blood Count 10.7 K/mm3 (4.8-10.8)
[2021-01-09 06:32] LABS: Chloride 106 mmol/L (98-107); Potassium 4.3 mmoL/L (3.5-5.1); Sodium 139 mmol/L (136-145)
[2021-01-09 06:34] LABS: Alanine Aminotransferase 10 U/L (12-78); Aspartate Amino Transferase 16 U/L (14-36); Blood Urea Nitrogen 9 mg/dl (7-17); Creatinine Clearance Estimated 149 mL/min (50-200); Estimated Glomerular Filt Rate 105 ml/min (>60); GFR (African American) 128 ML/MIN (>60)
[2021-01-09 06:35] LABS: Albumin Level 3.4 g/dl (3.5-5.0); Albumin/Globulin Ratio 1.3 (1.1-1.8); Alkaline Phosphatase 90 U/L (38-126); Anion Gap 8.3 mEq/L (5-15); Calcium 8.2 mg/dl (8.4-10.2); Carbon Dioxide 29 mmol/L (22.0-30.0); Globulin 2.7 g/dL (1.3-3.2); Glucose 121 mg/dl (74-100); Total Protein,Serum 6.1 g/dl (6.3-8.2)
[2021-01-09 06:36] LABS: Bilirubin,Total 0.1 mg/dl (0.2-1.3)
[2021-01-09 07:50] VITALS: O2SAT 99
--- NOTE | 2021-01-09 07:50 | HMH.DCSUM ---
General - General Admission date:: 01/08/21 Discharge date: 01/09/21 HPI HPI: 50-year-old white female who presented to the hospital with a couple of days of left lower quadrant pain that was accelerating along with some straining at stool and some bright red blood per rectum. In the emergency department she was found to have no evidence of significant blood loss but was found to have colitis on CT scan of abdomen with fairly significant sigmoid thickening. Admitted to hospital for IV antibiotics, n.p.o. status and further evaluation. This morning she states she feels better and is hungry. Hospital Course Hospital Course: Patient was admitted, started on Flagyl and Solu-Medrol, felt better, did have some trouble sleeping in the hospital but this morning says she had a better night sleep last night and tolerated food well with only minimal left lower quadrant pain. 24 panel PCR testing of stool was negative. CT scan showed sigmoid diverticulosis/diverticulitis. Surgery consult reviewed and appreciated. Patient this morning feels well enough to go home and we will discharge her on Cipro, Flagyl and steroids, short-term follow-up in our office to arrange outpatient colonoscopy. Objective Vital signs: Temp Pulse Resp BP Pulse Ox 97.9 F 72 18 104/59 L 93 L 01/09/21 04:30 01/09/21 04:30 01/09/21 04:30 01/09/21 04:30 01/09/21 04:30 no acute distress - *Routine HEENT Exam Head: Present: normocephalic Eye: Present: EOMI, PERRL ENT: Present: mucous membranes moist - *Routine Neck Exam Present: supple - *Routine Respiratory Exam Present: CTA bilaterally - *Routine Cardiovascular Exam Present: RRR - *Routine Abdominal Exam Present: soft, normoactive bowel sounds, tenderness (Minimal in left lower quadrant, improved over admission exam), obese - *Routine Extremities Exam Absent: cyanosis, clubbing, edema - *Routine Skin Exam Present: warm. Absent: rash - Detailed Eye Exam Eyelids: Bilateral normal inspection Results Labs on day of discharge: Labs from last 24 hours 01/09/21 01/09/21 01/08/21 06:09 06:09 14:16 WBC 10.7 D RBC 4.07 L Hgb 11.9 L Hct 36.6 L MCV 90.0 MCH 29.3 MCHC 32.6 RDW 14.1 Plt Count 291 MPV 7.6 Neut % (Auto) 60.8 Lymph % (Auto) 32.4 [place] % (Auto) 4.4 Eos % (Auto) 2.0 Baso % (Auto) 0.4 Neut # (Auto) 6.5 Lymph # (Auto) 3.5 [place] # (Auto) 0.5 Eos # (Auto) 0.2 Baso # (Auto) 0.1 Sodium 139 Potassium 4.3 Chloride 106 Carbon Dioxide 29 Anion Gap 8.3 BUN 9 D Creatinine 0.60 D Estimated Creat Clear 149 Estimated GFR 105 Est GFR ( Amer) 128 D Glucose 121 H D Calcium 8.2 L Total Bilirubin 0.1 L AST 16 ALT 10 L D Alkaline Phosphatase 90 Total Protein 6.1 L Albumin 3.4 L D Globulin 2.7 Albumin/Globulin Ratio 1.3 Stl Aeromonas (PCR) Not detected Stl C. cayetanensis PCR Not detected Stool Rotavirus (PCR) Not detected Stl Adenov F 40/41 PCR Not detected Stool Astrovirus (PCR) Not detected Stool Campylobacter PCR Not detected Stl C.difficile Tox PCR Not detected Stool Cryptosporidium PCR Not detected Stl E.coli Shiga Tox PCR Not detected Stool E coli O157 PCR Not detected Stl Enterotoxigenic E PCR Not detected Stool EPEC (PCR) Not detected Stool EAEC (PCR) Not detected Stl E. histolytica PCR Not detected Stool Giardia Lamblia PCR Not detected Stool Salmonella PCR Not detected Stool Sapovirus (PCR) Not detected Stl P. shigelloides PCR Not detected Stl Shigella/EIEC PCR Not detected St Y.enterocolitica PCR Not detected Stool Vibrio (PCR) Not detected Stl Vibrio cholerae PCR Not detected Stl Norovirus GI/GII PCR Not detected Preliminary micro results at discharge 01/07/21 23:35 Urine Culture - Preliminary Urine,Clean Catch DS: Diagnosis
[2021-01-09 08:04] VITALS: BP 115/66; PULSE 76; RESP 20; TEMP 36.9; O2SAT 99
== END 2021-01-09 08:35 | disposition home or self-care (01) ==
LOC: ER 20:45 → OB 01-08 01:49
PROVIDERS: Admitting Provider Family Medicine; Emergency Provider Emergency Medicine; PCP Internal Medicine Adolescent Medicine; Visit Provider Internal Medicine Adolescent Medicine
DX: K52.9 Noninfective gastroenteritis and colitis, unspecified (principal); N17.9 Acute kidney failure, unspecified; I10 Essential (primary) hypertension; F17.210 Nicotine dependence, cigarettes, uncomplicated; R19.7 Diarrhea, unspecified
CPT/HCPCS: 74177; 80048; 80053; 81001; 82150; 82272; 83605; 83690; 84145; 85007; 85025; 85651; 86140; 87086; 87507; 96365; 96366; 96375; 99284; G0328; G0378; J1956; J2405; Q9967; U0003

== ENCOUNTER 2021-07-11 23:29 | Emergency (ER) | payer OTHER, SELFPAY ==
[2021-07-11 23:31] VITALS: BP 160/100; PULSE 106; RESP 22; TEMP 36.9; O2SAT 99; BMI 27.3
--- NOTE | 2021-07-11 23:58 | PC.NURSE ---
Consulted Debbie, pharmacist with night watch, to confirm dosing of Rabies vaccine, advised to give 2.5units.
--- NOTE | 2021-07-12 00:43 | HMH.EDANIB ---
ED Disposition Clinical Impression: Animal bite Disposition: Home, Self-Care Condition on Discharge: Good Instructions: Animal Bites Additional Instructions: call pcp in am and arrange f/u and vaccine for rabies Prescriptions: Amoxicillin/Potassium Clav [Augmentin 875-125 Tablet] 1 tab PO Q12H #20 tab Transmission Status: Pending to Clinic [facility] Referrals: Tawanda Ramirez MD [Primary Care Provider] - - Critical Care Critical Care Time: No Attestation: On 07/11/21, the high probability of a clinically significant, sudden or life threatening deterioration of the following system(s) required my full and direct attention, intervention and personal management. The time I documented below is in addition to time spent performing reported procedures but includes the following listed in this critical care notation. Medical Decision Making - Medical Records Medical records reviewed: Yes: I reviewed the patient's medical records. - Gage Inquiry Pt receiving controlled substance: No Vital Signs: 07/11/21 23:31 Temperature 98.4 F Temperature Source Oral Pulse Rate [Apical] 106 H Respiratory Rate 22 Blood Pressure [Right Arm] 160/100 H Blood Pressure Mean [Right Arm] 120 Blood Pressure Source [Right Arm] Automatic Cuff Blood Pressure Position [Right Arm] Sitting 02 Sat by Pulse Oximetry 99 Oxygen Delivery Method Room Air - Lab Data Lab results reviewed: Yes: I reviewed the patient's lab results. Orders (Tests/Meds): ED MEDICATIONS Discontinued Medications Generic Name Dose Route Start Last Admin Trade Name Freq PRN Reason Stop Dose Admin Acetaminophen/Codeine Phosphate 1 yesi 07/12/21 00:16 Acetaminophen 300mg W/Codeine 30mg Take Home Pack (6) PO 07/12/21 00:17 ONCE ONE Rabies Immune Globulin 1,400 unit 07/12/21 00:08 07/12/21 00:17 Rabies Immune Globulin/Pf 300 Unit/Ml Vial IM 07/12/21 00:09 1,400 unit ONCE ONE Administration Rabies Vaccine 2.5 unit 07/11/21 23:57 07/12/21 00:03 Rabies Vaccine (Pcec)/Pf 2.5 Unit Vial IM 07/11/21 23:58 2.5 unit .ONCE ONE Administration Tetanus/Diphtheria Toxoids 0.5 ml 07/12/21 00:08 07/12/21 00:18 Tetanus-Diphth Toxoid, Adult 0.5ml Syr IM 07/12/21 00:09 0.5 ml .ONCE ONE Administration Medical Decision Narrative: unk animal will cover for rabies and refer to pcp or vaccine series Animal Bite HPI - General Chief Complaint: Animal Bite Stated Complaint: AO 07/11/21 [id number] injury to face chest and arms Time Seen by Provider: 07/11/21 23:50 Mode of Arrival: Ambulatory Source of Information: Patient, Medical Record Limitations: No Limitations Description of Symptoms (Recalled from ER Triage Doc. by RN): Patient states that roughly an hour ago she was getting out of her car when she turned around and was attacked by an animal. States that she was unable to see the animal that attacked her because she was not wearing her glasses. Obtained 4 lacerations. One to her right eye, one to her right breast and one to each forearm. 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 - MD complaint: other (scratches ) Onset (ago): hour(s) Animal: other (unk) Description of animal: unknown animal Mechanism: scratch Location: face, chest Bilateral: forearm Severity scale (1-10): 3 Context: unprovoked Associated symptoms: none - Related Data Patient tetanus UTD: No Home Medications Medication Instructions Recorded Confirmed amitriptyline 50 mg tablet 50 mg PO DAILY tab 10/25/20 01/07/21 hydroxyzine HCl 25 mg tablet 25 mg PO DAILY tab 10/25/20 01/07/21 lisinopril 10 mg tablet 10 mg PO DAILY tab 10/25/20 01/07/21 Previous Rx's Medication Instructions Recorded Ciprofloxacin HCl 500 mg PO BID #14 tab 01/09/21 metroNIDAZOLE [Flagyl 500mg 500 mg PO TID #21 tab 01/09/21 Tablet] predniSONE [Deltasone 20mg 20 mg PO BID 7
--- NOTE | 2021-07-12 00:46 | PC.NURSE ---
Consulted with Segundo, Pharmacist library circulation department chief, to confirm dosage for rabies immune globulin, verified dosage of 1400 units. Patient given dtap, rabies immune globulin and rabies vaccine. Patient is resting in bed with no complaints. Injections for immune globulin given per md order of small injections surrounding the scratches with half given as small subcutaneous injections and the final half of the injection given as an im injection.
[2021-07-12 01:03] VITALS: BP 129/87; PULSE 80; RESP 20; TEMP 36.7; O2SAT 98
== END 2021-07-12 01:05 | disposition home or self-care (01) ==
PROVIDERS: Emergency Provider Emergency Medicine; PCP Internal Medicine Adolescent Medicine
DX: S00.211A Abrasion of right eyelid and periocular area, initial encounter (principal); S20.111A Abrasion of breast, right breast, initial encounter; S50.812A Abrasion of left forearm, initial encounter; S50.811A Abrasion of right forearm, initial encounter; W55.82XA Struck by other mammals, initial encounter; Y92.89 Other specified places as the place of occurrence of the external cause; Z23 Encounter for immunization; Z20.3 Contact with and (suspected) exposure to rabies
CPT/HCPCS: 90375; 90675; 90714; 96372; 99281

== ENCOUNTER 2021-07-18 15:28 | Outpatient (CLI) | payer OTHER, SELFPAY ==
[2021-07-18 15:36] VITALS: BP 149/84; PULSE 111; RESP 16; TEMP 36.6; O2SAT 97
== END 2021-07-18 15:52 | disposition home or self-care (01) ==
LOC: INF 15:28
PROVIDERS: PCP Internal Medicine Adolescent Medicine; Visit Provider Internal Medicine Adolescent Medicine
DX: Z29.14 Encounter for prophylactic rabies immune globulin (principal); T14.8XXA Other injury of unspecified body region, initial encounter; W55.81XA Bitten by other mammals, initial encounter
CPT/HCPCS: 90675; 96372

== ENCOUNTER → 2021-08-16 16:19 | Outpatient (CLI) | payer OTHER, SELFPAY | PROVIDERS: PCP Emergency Medicine; Visit Provider Surgery | DX: Z01.812 Encounter for preprocedural laboratory examination (principal); Z11.52 Encounter for screening for COVID-19; Z12.11 Encounter for screening for malignant neoplasm of colon | CPT/HCPCS: C9803; U0003; U0005 ==

== ENCOUNTER 2021-10-17 12:17 | Emergency (ER) | payer OTHER, SELFPAY ==
[2021-10-17 12:25] VITALS: BP 166/98; PULSE 119; RESP 20; TEMP 36.9; O2SAT 98
[2021-10-17 12:30] VITALS: BMI 28.3
--- NOTE | 2021-10-17 12:31 | XR_ITS ---
FINAL REPORT CLINICAL HISTORY: pain/fall FINDINGS: LUMBAR SPINE Two views were obtained. There is no acute fracture. There is no malalignment. There are mild degenerative changes with osteophytes. There are mild vascular calcifications. IMPRESSION: Mild degenerative changes with osteophytes. Reviewed, Interpreted and Dictated by Akil Richards III, MD Transcribed by Ricarda Landis Authenticated by Akil Richards III, MD on 10/17/2021 02:06:34 PM [facility]
[2021-10-17 12:33] VITALS: BP 139/100; PULSE 111; RESP 17; TEMP 36.9; O2SAT 97; BMI 28.3
--- NOTE | 2021-10-17 12:34 | XR_ITS ---
FINAL REPORT CLINICAL HISTORY: trauma/pain FINDINGS: RIGHT HIP Two views with an AP pelvis were obtained. There is no acute fracture or dislocation. The joint spaces are intact. There is no soft tissue abnormality. IMPRESSION: No acute bony abnormality. Reviewed, Interpreted and Dictated by Akil Richards III, MD Transcribed by Ricarda Landis Authenticated by Akil Richards III, MD on 10/17/2021 01:45:50 PM [facility]
--- NOTE | 2021-10-17 12:35 | HMH.EDGENADL ---
ED Disposition Clinical Impression: Low back strain Qualifiers: Encounter type: initial encounter Qualified Code(s): S39.012A - Strain of muscle, fascia and tendon of lower back, initial encounter Disposition: Home, Self-Care Condition on Discharge: Good Instructions: DI for Low Back Pain Additional Instructions: follow up pcp Referrals: Marques Joiner MD [Primary Care Provider] - - Critical Care Critical Care Time: No Attestation: On 10/17/21, the high probability of a clinically significant, sudden or life threatening deterioration of the following system(s) required my full and direct attention, intervention and personal management. The time I documented below is in addition to time spent performing reported procedures but includes the following listed in this critical care notation. Medical Decision Making - Medical Records Medical records reviewed: Yes: I reviewed the patient's medical records. - Gage Inquiry Pt receiving controlled substance: No Vital Signs: 10/17/21 12:25 10/17/21 12:33 10/17/21 12:39 Temperature 98.4 F 98.4 F Temperature Source Oral Oral Pulse Rate 119 H 76 Pulse Rate [Left Radial] 111 H Respiratory Rate 20 17 18 Blood Pressure 166/98 H 124/83 Blood Pressure [Right Arm] 139/100 H Blood Pressure Mean [Right Arm] 113 Blood Pressure Source Automatic Cuff Automatic Cuff Blood Pressure Position Sitting Sitting 02 Sat by Pulse Oximetry 98 97 97 Oxygen Delivery Method Room Air Room Air Room Air Orders (Tests/Meds): ED MEDICATIONS Discontinued Medications Generic Name Dose Route Start Last Admin Trade Name Freq PRN Reason Stop Dose Admin Oxycodone/Acetaminophen 1 each 10/17/21 12:39 10/17/21 12:44 Oxycodone 10mg W/Apap 325mg Tablet PO 10/17/21 12:40 1 each ONCE ONE Administration ORDERS Category Date Time Status Hip XR right minimum 2 views [XR hip RT 2-3V w/pelvis] Exams 10/17/21 12:34 Taken Stat XR lumbar spine 2-3V Stat Exams 10/17/21 12:31 Taken General Adult HPI - General Stated complaint: AO fall 10/12 back pain Time Seen by Provider: 10/17/21 12:35 - History of Present Illness HPI narrative: trrip and fall at home few days ago today pain no better in low rt back/hip Onset (ago): day(s) Radiation: back, extremity Severity: moderate Quality: dull, constant Relieving factors: immobilization, rest Exacerbating factors: movement Associated symptoms: denies other symptoms - Related Data Home Medications Medication Instructions Recorded Confirmed hydroCHLOROthiazide [HCTZ 25mg 25 mg PO DAILY 08/15/21 09/13/21 tab] lisinopriL [Lisinopril] 10 mg PO DAILY 08/15/21 09/13/21 Previous Rx's Medication Instructions Recorded alprazolam 0.5 mg tablet 0.5 mg PO BID #60 tab 09/13/21 bupropion HCl 150 mg tablet,12 hr 150 mg PO BID #84 each 09/13/21 sustained-release bupropion HCl 75 mg tablet 75 mg PO BID #28 tab 09/13/21 oxycodone-acetaminophen 10 mg-325 1 tab PO BID #60 tab 09/13/21 mg tablet gabapentin 800 mg tablet 800 mg PO TID #90 tab 10/16/21 Allergies Allergy/AdvReac Type Severity Reaction Status Date / Time codeine [CODEINE] Allergy Unknown Verified 09/13/21 16:16 [facility] History - Hepatitis A Screen Attestation statement:: This patient has been screened for Hepatitis A risk factors. Medical History: Reports:: Diabetes Mellitus Type 2, Gastroesophageal Reflux Disease(GERD), Hypertension Denies:: Cancer, Diabetes Mellitus Type 1, Internal Pacemaker, MRSA, Seizures Other Medical History: Denies: Blood Transfusion Reaction Other Surgeries: Yes: No Previous Surgery. No: Pacemaker Amputation: No - Social History Smoking Status: Current every day smoker Tobacco Type: cigarettes # Packs/Day (cigarettes): 1 Alcohol Intake: never Substance Use Type: denies use Occupational Status: unemployed, disabled Housing: house Household Members: spouse, children Family Hx:: No signifi
[2021-10-17 12:39] VITALS: BP 124/83; PULSE 76; RESP 18; O2SAT 97
--- NOTE | 2021-10-17 12:41 | PC.NURSE ---
confirmed with patient that she takes oxycodone 10/325 at home because of her codeine allergy. pt states she takes oxycodone daily with no issues.
--- NOTE | 2021-10-17 12:50 | PC.NURSE ---
pt in xray
[2021-10-17 13:53] VITALS: BP 124/80; PULSE 75; RESP 17; TEMP 36.8; O2SAT 96
== END 2021-10-17 13:54 | disposition home or self-care (01) ==
PROVIDERS: Emergency Provider Emergency Medicine; PCP Emergency Medicine
DX: S39.012A Strain of muscle, fascia and tendon of lower back, initial encounter (principal); W01.0XXA Fall on same level from slipping, tripping and stumbling without subsequent striking against object, initial encounter; Y92.019 Unspecified place in single-family (private) house as the place of occurrence of the external cause; I10 Essential (primary) hypertension; E11.9 Type 2 diabetes mellitus without complications; K21.9 Gastro-esophageal reflux disease without esophagitis; F17.210 Nicotine dependence, cigarettes, uncomplicated
CPT/HCPCS: 72100; 73502; 99213; G0463

== ENCOUNTER → 2021-11-07 13:33 | Outpatient (CLI) | payer OTHER, SELFPAY ==
--- NOTE | 2021-11-07 13:40 | XR_ITS ---
FINAL REPORT CLINICAL HISTORY: rt elbow pain, posterior pain FINDINGS: RIGHT ELBOW 3 views were obtained. There is no acute fracture or dislocation. The joint spaces are intact. There is no soft tissue abnormality. IMPRESSION: No acute bony abnormality. Reviewed, Interpreted and Dictated by Akil Richards III, MD Transcribed by Paula Renae Authenticated by Akil Richards III, MD on 11/07/2021 03:16:53 PM [facility]
== END ==
PROVIDERS: PCP Emergency Medicine; Visit Provider Physician Assistant Surgical
DX: M25.521 Pain in right elbow (principal)
CPT/HCPCS: 73080

== ENCOUNTER → 2021-12-05 16:06 | Outpatient (CLI) | payer OTHER, SELFPAY ==
[2021-12-05 15:00] LABS: Barbiturates Screen,Urine Negative ng/ml (<200); Benzodiazepines Screen,Urine Positive ng/ml (<200)
[2021-12-05 15:01] LABS: Amphetamine/Metha Screen,Urine Negative ng/ml (<1000)
[2021-12-05 15:02] LABS: Cannabinoid Screen,Urine Negative ng/ml (<50); Methadone Screen,Urine Negative ng/ml (<300)
[2021-12-05 15:03] LABS: Cocaine Screen,Urine Negative ng/ml (<300); Opiate Screen,Urine Positive ng/ml (<300)
[2021-12-05 15:04] LABS: Phencyclidine Screen,Urine Negative ng/ml (<25)
== END ==
PROVIDERS: PCP Emergency Medicine; Visit Provider Emergency Medicine
DX: Z79.899 Other long term (current) drug therapy (principal)
CPT/HCPCS: 80305

== ENCOUNTER → 2022-02-01 07:04 | Outpatient (CLI) | payer OTHER, SELFPAY ==
[2022-01-31 17:15] LABS: Coronavirus 19, PCR Not Detected (NotDetected); Influenza A, PCR Not Detected (NotDetected); Influenza B, PCR Not Detected (NotDetected)
== END ==
PROVIDERS: PCP Emergency Medicine; Visit Provider Emergency Medicine
DX: Z20.822 Contact with and (suspected) exposure to COVID-19 (principal); R50.9 Fever, unspecified
CPT/HCPCS: C9803; U0003; U0005

== ENCOUNTER → 2022-02-02 16:16 | Outpatient (CLI) | payer OTHER, SELFPAY | PROVIDERS: PCP Otolaryngology; Visit Provider Otolaryngology | DX: H65.21 Chronic serous otitis media, right ear (principal); H72.91 Unspecified perforation of tympanic membrane, right ear; B95.8 Unspecified staphylococcus as the cause of diseases classified elsewhere | CPT/HCPCS: 87070; 87077; 87186 ==

== ENCOUNTER → 2022-03-30 08:36 | Outpatient (CLI) | payer OTHER, SELFPAY ==
[2022-03-30 19:18] LABS: Amphetamine/Metha Screen,Urine Negative ng/ml (<1000); Barbiturates Screen,Urine Negative ng/ml (<200)
[2022-03-30 19:19] LABS: Benzodiazepines Screen,Urine Positive ng/ml (<200)
[2022-03-30 19:20] LABS: Cannabinoid Screen,Urine Negative ng/ml (<50); Cocaine Screen,Urine Negative ng/ml (<300)
[2022-03-30 19:21] LABS: Methadone Screen,Urine Negative ng/ml (<300)
[2022-03-30 19:22] LABS: Opiate Screen,Urine Negative ng/ml (<300); Phencyclidine Screen,Urine Negative ng/ml (<25)
== END ==
PROVIDERS: PCP Emergency Medicine; Visit Provider Emergency Medicine
DX: Z79.899 Other long term (current) drug therapy (principal)
CPT/HCPCS: 80305

== ENCOUNTER → 2022-05-28 14:30 | Outpatient (CLI) | payer OTHER, SELFPAY ==
[2022-05-29 17:34] LABS: Phencyclidine Screen,Urine Negative ng/ml (<25)
[2022-05-29 17:45] LABS: Methadone Screen,Urine Negative ng/ml (<300)
[2022-05-29 17:46] LABS: Barbiturates Screen,Urine Negative ng/ml (<200)
[2022-05-29 17:47] LABS: Amphetamine/Metha Screen,Urine Negative ng/ml (<1000); Benzodiazepines Screen,Urine Negative ng/ml (<200)
[2022-05-29 17:48] LABS: Cocaine Screen,Urine Negative ng/ml (<300)
[2022-05-29 17:49] LABS: Cannabinoid Screen,Urine Negative ng/ml (<50); Opiate Screen,Urine Positive ng/ml (<300)
== END ==
PROVIDERS: PCP Emergency Medicine; Visit Provider Emergency Medicine
DX: Z79.899 Other long term (current) drug therapy (principal)
CPT/HCPCS: 80305

== ENCOUNTER → 2022-07-27 16:15 | Outpatient (CLI) | payer OTHER, SELFPAY ==
[2022-07-27 19:18] LABS: Benzodiazepines Screen,Urine Negative ng/ml (<200)
[2022-07-27 19:19] LABS: Amphetamine/Metha Screen,Urine Negative ng/ml (<1000); Barbiturates Screen,Urine Negative ng/ml (<200)
[2022-07-27 19:20] LABS: Cannabinoid Screen,Urine Negative ng/ml (<50)
[2022-07-27 19:21] LABS: Cocaine Screen,Urine Negative ng/ml (<300); Methadone Screen,Urine Negative ng/ml (<300)
[2022-07-27 19:22] LABS: Opiate Screen,Urine Positive ng/ml (<300)
[2022-07-27 19:23] LABS: Phencyclidine Screen,Urine Negative ng/ml (<25)
== END ==
PROVIDERS: PCP Emergency Medicine; Visit Provider Emergency Medicine
DX: Z79.899 Other long term (current) drug therapy (principal)
CPT/HCPCS: 80305

== ENCOUNTER → 2022-08-07 13:53 | Outpatient (CLI) | payer OTHER, SELFPAY ==
--- NOTE | 2022-08-07 13:57 | CT_ITS ---
FINAL REPORT TECHNIQUE: Thin section axial images were obtained through the skull base and temporal bones. Small [id number] axial images and coronal reconstruction images were obtained. Exam was performed using dose reduction technique. CLINICAL HISTORY: ear pain COMPARISON: None. FINDINGS: Right: The right external auditory canal is patent. The middle ear ossicles are intact. There is no fluid in the right middle ear cavity. The mastoid air cells are hypoplastic. The internal auditory canal is unremarkable. Left: The left external auditory canal is patent. The middle ear ossicles are intact. There is no fluid in the middle ear cavity. The left mastoid air cells are clear. The left internal auditory canal appears within normal limits. Other: There is a hypoplastic right maxillary sinus which is partially opacified. There is mild mucoperiosteal thickening of the ethmoid air cells. An air-fluid level is present in sphenoid sinus. No acute osseous abnormality is identified. IMPRESSION: 1. Hypoplastic right mastoid air cells. 2. No evidence of otitis externa or otitis media. 3. Acute sphenoid sinusitis with right maxillary sinusitis which could be acute on chronic. Authenticated and ERN
== END ==
PROVIDERS: PCP Emergency Medicine; Visit Provider Otolaryngology
DX: H73.891 Other specified disorders of tympanic membrane, right ear (principal)
CPT/HCPCS: 70480

== ENCOUNTER → 2022-09-21 23:42 | Outpatient (CLI) | payer OTHER, SELFPAY ==
[2022-09-21 18:43] LABS: Barbiturates Screen,Urine Negative ng/ml (<200)
[2022-09-21 18:44] LABS: Benzodiazepines Screen,Urine Negative ng/ml (<200)
[2022-09-21 18:45] LABS: Cannabinoid Screen,Urine Positive ng/ml (<50)
[2022-09-21 18:46] LABS: Cocaine Screen,Urine Negative ng/ml (<300)
[2022-09-21 18:47] LABS: Methadone Screen,Urine Negative ng/ml (<300); Opiate Screen,Urine Negative ng/ml (<300)
[2022-09-21 18:48] LABS: Phencyclidine Screen,Urine Negative ng/ml (<25)
[2022-09-28 11:27] LABS: Amphetamine Positive (.); Amphetamine (GC/MS) >3000 ng/mL (Cutoff=500); Amphetamines Positive (.); Methamphetamine Positive (.); Methamphetamine (GC/MS) 2865 ng/mL (Cutoff=500)
== END ==
PROVIDERS: PCP Emergency Medicine; Visit Provider Emergency Medicine
DX: Z79.899 Other long term (current) drug therapy (principal)
CPT/HCPCS: 80305; 80324

== ENCOUNTER 2022-10-12 06:15 | Day surgery (SDC) | payer OTHER, SELFPAY ==
[2022-10-11 10:46] VITALS: BMI 27.6
[2022-10-12 07:01] VITALS: BP 164/79; PULSE 78; RESP 18; TEMP 36.2; O2SAT 99
--- NOTE | 2022-10-12 07:24 | EXP.ANES.CKL ---
[facility] Disclaimer: The information contained in this section may have been updated after the patient was seen, as this information can be updated by other users. 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 Sinusitis Surgical History History of section History of cholecystectomy History of hand surgery Family History Other Family history of hypertension Social History Smoking Status: Current every day smoker tobacco type: cigarettes packs per day: 1 alcohol intake: current substance use type: denies use current occupational status: disabled Travel in the last 8 weeks: None household members: spouse and children housing: house lives independently: No marital status: education level: high school current occupation: [employer] current occupational exposures/hazards: No caffeine: Yes special charley needs: No agree to transfusion: No do you feel safe at home: Yes victim of physical abuse: No victim of emotional abuse: No victim of sexual abuse: No would you like helpful sources: No [facility] Anesthesia Checklist Patient Identification Patient Identification: Arm Band Structural Data Admitted From: Home Planned Operative Procedure/s: colonoscopy Consent for Planned Operative Procedure(s) Verified: Yes Verified Documents: Surgical Consent and History and Physical NPO Status Verified Time NPO: 00:00 Additional verifications Anesthesia Reactions: No Hx Blood Transfusions: No Blood Transfusion Reaction: No Airway Assessment C-Spine Mobility Assessed: Yes TMJ Mobility Assessed: Yes Dentition: Dentures-good fit Neurological Assessment Level of Consciousness: Awake and Alert Anesthesia Plan Anesthesia Risk discussed: Yes Anesthesia Plan: Verified ASA Class: II Anesthesia Type: MAC
[2022-10-12 07:30] VITALS: O2SAT 97
--- NOTE | 2022-10-12 08:19 | P.PCN_ITS ---
Procedure: Date: 10/12/22 Patient Date of :: 1970 Procedure Performed:: Total colonoscopy to ileocecal valve with numerous polypectomy Indications:: Patient is a 52-year-old female referred for initial screening colonoscopy. She states that she does have a family history of colon cancer in her father who was diagnosed with colon cancer she believes at the age of approximately 45. Performing Provider:: Akil Cobos MD Referring Provider:: Sidney Joiner Sedation:: MAC sedation Procedure:: Patient history was obtained and appropriate physical examination was performed. Patient's medications and allergies were reviewed. Informed consent was obtained after explaining the benefits, alternatives, and risks of the procedure including, but not limited to, bleeding, perforation, missed lesions, and ad verse reaction to anesthesia medications. Patient was transported to endoscopy procedure room. Patient was connected to monitoring devices. Throughout the procedure the patient's blood pressure, p ulse, and oxygen saturations were monitored continuously. Patient identification and planned procedure were verified by the staff. Patient was positioned in lateral decubitus position. Digital anorectal exam was performed. Variable stiffness Olympus colonoscope was inserted and advanced under direct visualization to the cecum. Adequacy of the colonic preparation was noted. The colonoscope was advanced a short distance into the ileocecal valve briefly. The colonoscope was then slowly withdrawn while carefully examining the color, texture, anatomy, and integrity of the mucosoa circumferentially. Within the rectum retroflexion was performed. Colonoscope was then withdrawn. Findings:: Colonic preparation was fair but decent visualization was achieved with irrigation and suctioning. She had significant redundancy and floppiness of the colon with some atony. In the ascending colon there was a small adenomatous polyp removed with cold snare. In the distal sigmoid colon there was a hyperplastic appearing polyp removed with biopsy forceps. In the rectosigmoid region there were multiple likely hyperplastic appearing polyps 3 of which were removed with snare and 3 removed with biopsy forceps. In the rectum retroflexion revealed possible adenomatous appearing distal rectal polyp removed with cold snare. Impression: Floppiness and redundancy of the colon Polyps as noted above, total of 9 polyps, mostly hyperplastic appearing Recommendations:: Follow-up colonoscopy pending pathology. Likely 3 years given polyps and family history Complications:: None immediately apparent Estimated blood obtained (mL): 2
[2022-10-12 08:20] VITALS: BP 100/69; PULSE 70; RESP 19; TEMP 36.2; O2SAT 96
[2022-10-12 08:30] VITALS: BP 109/65; PULSE 74; RESP 18; O2SAT 98
[2022-10-12 08:40] VITALS: BP 133/75; PULSE 71; RESP 16; O2SAT 98
[2022-10-12 08:50] VITALS: BP 135/85; PULSE 71; RESP 16; TEMP 36.8; O2SAT 98
== END 2022-10-12 08:54 | disposition home or self-care (01) ==
PROVIDERS: PCP Emergency Medicine; Visit Provider Surgery
PROC: 0DJD8ZZ Inspection of Lower Intestinal Tract, Via Natural or Artificial Opening Endoscopic (ICD-10-PCS; CPT 45380; principal; 2022-10-12 07:30)
DX: Z12.11 Encounter for screening for malignant neoplasm of colon (principal); D12.2 Benign neoplasm of ascending colon; D12.8 Benign neoplasm of rectum; Z80.0 Family history of malignant neoplasm of digestive organs; Z79.899 Other long term (current) drug therapy
CPT/HCPCS: 45380; 45385; J2704

== ENCOUNTER → 2022-10-18 06:30 | Outpatient (CLI) | payer OTHER, SELFPAY ==
[2022-10-18 19:41] LABS: Barbiturates Screen,Urine Negative ng/ml (<200)
[2022-10-18 19:42] LABS: Amphetamine/Metha Screen,Urine Negative ng/ml (<1000); Benzodiazepines Screen,Urine Negative ng/ml (<200)
[2022-10-18 19:43] LABS: Opiate Screen,Urine Positive ng/ml (<300)
[2022-10-18 19:44] LABS: Phencyclidine Screen,Urine Negative ng/ml (<25)
[2022-10-18 19:45] LABS: Methadone Screen,Urine Negative ng/ml (<300)
[2022-10-18 19:46] LABS: Cannabinoid Screen,Urine Negative ng/ml (<50); Cocaine Screen,Urine Negative ng/ml (<300)
== END ==
PROVIDERS: PCP Emergency Medicine; Visit Provider Emergency Medicine
DX: Z79.899 Other long term (current) drug therapy (principal)
CPT/HCPCS: 80305

== ENCOUNTER → 2023-01-25 12:04 | Outpatient (CLI) | payer OTHER, SELFPAY ==
[2023-01-25 20:58] LABS: Amphetamine/Metha Screen,Urine Negative ng/ml (<1000)
[2023-01-25 21:01] LABS: Cocaine Screen,Urine Negative ng/ml (<300)
[2023-01-25 21:50] LABS: Barbiturates Screen,Urine Negative ng/ml (<200)
[2023-01-25 21:51] LABS: Benzodiazepines Screen,Urine Positive ng/ml (<200)
[2023-01-25 21:52] LABS: Methadone Screen,Urine Negative ng/ml (<300)
[2023-01-25 22:17] LABS: Cannabinoid Screen,Urine Negative ng/ml (<50)
[2023-01-26 00:24] LABS: Opiate Screen,Urine Negative ng/ml (<300); Phencyclidine Screen,Urine Negative ng/ml (<25)
== END ==
PROVIDERS: PCP Emergency Medicine; Visit Provider Emergency Medicine
DX: Z79.899 Other long term (current) drug therapy (principal)
CPT/HCPCS: 80305

== ENCOUNTER → 2023-03-28 13:14 | Outpatient (CLI) | payer OTHER, SELFPAY ==
--- NOTE | 2023-03-28 13:20 | XR_ITS ---
FINAL REPORT CLINICAL HISTORY: lt wrist pain COMPARISON: None FINDINGS: LEFT WRIST Three views demonstrate no acute fracture or dislocation. The visualized joint spaces are normally aligned. The soft tissues are unremarkable. There is mild degenerative change involving the radial aspect of the wrist. IMPRESSION: Mild degenerative change involving the radial aspect of the wrist. Reviewed, Interpreted and Dictated by Akil Richards III, MD Transcribed by Carol Jean Authenticated and . [facility]
--- NOTE | 2023-03-28 13:20 | XR_ITS ---
FINAL REPORT CLINICAL HISTORY: rt wrist pain COMPARISON: None FINDINGS: RIGHT WRIST Three views demonstrate no acute fracture or dislocation. The visualized joint spaces are normally aligned. The soft tissues are unremarkable. There is mild degenerative change involving the radial aspect of the wrist. IMPRESSION: Mild degenerative change as described. Reviewed, Interpreted and Dictated by Akil Richards III, MD Transcribed by Carol Jean Authenticated and [facility]
== END ==
PROVIDERS: PCP Emergency Medicine; Visit Provider Orthopaedic Surgery
DX: M25.531 Pain in right wrist (principal); M25.532 Pain in left wrist
CPT/HCPCS: 73110

== ENCOUNTER → 2023-04-10 06:36 | Outpatient (CLI) | payer OTHER, SELFPAY ==
[2023-04-10 23:56] LABS: Amphetamine/Metha Screen,Urine Negative ng/ml (<1000); Barbiturates Screen,Urine Negative ng/ml (<200)
[2023-04-10 23:57] LABS: Benzodiazepines Screen,Urine Negative ng/ml (<200)
[2023-04-10 23:58] LABS: Cannabinoid Screen,Urine Negative ng/ml (<50)
[2023-04-10 23:59] LABS: Cocaine Screen,Urine Negative ng/ml (<300)
[2023-04-11] LABS: Methadone Screen,Urine Negative ng/ml (<300)
[2023-04-11 00:01] LABS: Opiate Screen,Urine Positive ng/ml (<300)
[2023-04-11 00:02] LABS: Phencyclidine Screen,Urine Negative ng/ml (<25)
--- OUTSIDE RECORDS SUMMARY | 2023-04-24 06:37 | XMS_ITS | Continuity of Care Document ---
Author Name Unknown Organization [facility] Address [address] [place] [address] Phone Care Team Providers Care Field Administrator Name Role Phone Jonny LUONG, Arya Unavailable Unavailable Allergies, Adverse Reactions, Alerts Substance Reaction Status Criticality No Known Drug Allergies Active No I nformation Medications Medication Instructions Dosage Effective Dates (start - stop) Status Comments Xanax 0.5 mg Tab take 1 tablet (0.5MG ) by ORAL route 4 times every day 0.5 MG - Active Zoloft 50 mg Tab take 1 tablet (50MG) by ORAL route every day 50 MG - Active Ambien 10 mg Tab take 1 tablet (10MG) by ORAL route every day at bedtime 10 MG - Active Medrol (Juan) 4 mg Tabs in a Dose Pack as directed - Active Procedures Procedure Date DESTR PARAVERTEBRL NERVE L/S DESTR PARAVERTEBRAL N ADD-ON Fluoroscopic Guidance For Spine Injectio n MOD CS BY SAME PHYS, 5 YRS + Ringers lactate infusion ANCEF 500 MG FENTANYL 2 ML ALFENTA 1 ML BUPIVACAINE NO EPI .25% PER 1 ML 2009 BUPIVACAINE NO EPI .5% PER 1 ML 010 Methylprednisolone 40 MG inj
--- OUTSIDE RECORDS SUMMARY | 2023-04-24 06:38 | XMS_ITS | Patient Health Record ---
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 Role Phone Tawanda Ramirez Primary Care Provider REASON FOR REFERRAL No Information MEDICATIONS Medication SIG (Take, Route, Frequency, Duration) Notes Start Date End Date Status hydrOXYzine hydrochloride hydrochloride 25 mg 1 tab(s) orally 3 times a day prn for 30 day(s) 08/09/2020 Active amitriptyline 50 mg 1 tab(s) orally once a day (at bedtime) for 30 days Active FLUoxetine Hydrochloride 40 mg 1 cap(s) orally once a day for 30 day(s) 08/16/2020 Active Vitamin D3 50,000 intl units 1 cap(s) or ally twice weekly for 30 day(s) 05/26/2020 Active lisinopril 10 mg 1 tab(s) orally once a day for 30 days Active SOCIAL HISTORY Tobacco Use: Social History Observation Description Date Details (start date - stop date) Current Smoker NA - NA Sex Assigned At : Social History Observation Description Sex Assigned At Unknown Smoking: Question Answer Notes Are you a: current smoker How often do you smoke cigarettes? every day
== END ==
PROVIDERS: PCP Emergency Medicine; Visit Provider Emergency Medicine
DX: Z79.891 Long term (current) use of opiate analgesic (principal)
CPT/HCPCS: 80305

== ENCOUNTER → 2023-06-07 12:00 | Outpatient (CLI) | payer OTHER, SELFPAY ==
[2023-06-07 18:54] LABS: Amphetamine/Metha Screen,Urine Negative ng/ml (<1000)
[2023-06-07 18:55] LABS: Barbiturates Screen,Urine Negative ng/ml (<200)
[2023-06-07 18:56] LABS: Benzodiazepines Screen,Urine Negative ng/ml (<200); Cannabinoid Screen,Urine Negative ng/ml (<50)
[2023-06-07 18:57] LABS: Cocaine Screen,Urine Negative ng/ml (<300)
[2023-06-07 18:58] LABS: Methadone Screen,Urine Negative ng/ml (<300); Opiate Screen,Urine Positive ng/ml (<300)
[2023-06-07 18:59] LABS: Phencyclidine Screen,Urine Negative ng/ml (<25)
== END ==
PROVIDERS: PCP Emergency Medicine; Visit Provider Emergency Medicine
DX: Z79.899 Other long term (current) drug therapy (principal)
CPT/HCPCS: 80305

== ENCOUNTER 2023-07-13 18:11 | Emergency (ER) | payer OTHER, SELFPAY ==
[2023-07-13 18:12] VITALS: BP 162/90; PULSE 77; RESP 16; TEMP 37.1; O2SAT 99; BMI 26.5
[2023-07-13 18:30] VITALS: BP 160/87; PULSE 74; O2SAT 97
--- NOTE | 2023-07-13 18:30 | HMH.EDGENADL ---
Discharge Plan Disposition Patient Disposition: Home, Self-Care Prescriptions Prescriptions: New nsshrxhqaaxmgea-iqjvrsbcy-AD [Bromfed DM] 2-30-10 mg/5 mL syrup 5 ml PO Q6H PRN (Reason: cold symptoms) Qty: 118 0RF No Action Vraylar 1.5 mg capsule 1.5 mg PO DAILY Qty: 30 2RF cyclobenzaprine 10 mg tablet 10 mg PO BID Qty: 20 0RF fluticasone propionate [Flonase Allergy Relief] 50 mcg/actuation spray,suspension 2 spray intranasal DAILY Qty: 16 3RF Rx Instructions: administer into each nostril hydrochlorothiazide 25 mg tablet 25 mg PO DAILY 60 Days Qty: 60 0RF Rx Instructions: TAKE 1 TABLET BY MOUTH ONCE DAILY lidocaine 5 % adhesive patch,medicated 1 patch topical DAILY Qty: 30 0RF Rx Instructions: leave on most painful area for up to 12 hrs mupirocin 2 % ointment 1 applic topical BID Qty: 22 0RF pantoprazole [Protonix] 40 mg tablet,delayed release (DR/EC) 40 mg PO DAILY 60 Days Qty: 60 0RF trazodone 50 mg tablet See Rx Instructions .ROUTE .COMPLEX Qty: 30 0RF Dose Instruction: TAKE ONE TABLET BY MOUTH AT BEDTIME Rx Instructions: TAKE ONE TABLET BY MOUTH AT BEDTIME gabapentin 800 mg tablet 800 mg PO TID Qty: 90 1RF alprazolam [Xanax] 1 mg tablet 1 mg PO TID Qty: 90 1RF oxycodone 10 mg tablet 10 mg PO QID Qty: 120 0RF lisinopril 10 mg tablet See Rx Instructions .ROUTE .COMPLEX Qty: 30 0RF Dose Instruction: TAKE ONE TABLET BY MOUTH ONCE A DAY Rx Instructions: TAKE ONE TABLET BY MOUTH ONCE A DAY Referrals Follow up/Referrals: Albert Walton DO [Primary Care Provider] - See instructions Activity Restrictions/Add. Instructions Additional Instructions/Restrictions: At this time it was felt you are safe to be discharged home. If new or worsening symptoms please do not hesitate to return the emergency department. Please take your medications as prescribed. Clinical Impressions Clinical Impression: Viral respiratory infection Discharge ED Provider: Harshad Mckeon General Adult HPI General Chief complaint: Upper Respiratory Infection Stated complaint: headaches, runny nose, cough, fever Time Seen by Provider: 07/13/23 18:22 History of Present Illness HPI narrative: Patient is a 53-year-old female with no pertinent past medical history who presents emergency department for evaluation of cough and congestion as well as headache. Onset was acute, last 48 hours. Headache is generalized, worse bitemporal. Drainage, blood streaks with blowing the nose. Due to persistent symptoms she presents here for continued evaluation. Positive contacts with COVID. Related Data Previous Rx's Medication Instructions Recorded alprazolam 1 mg tablet (Xanax) 1 mg PO TID Anxiety #90 tabs 06/07/23 cariprazine 1.5 mg capsule 1.5 mg PO DAILY #30 caps 06/07/23 (Vraylar) cyclobenzaprine 10 mg tablet 10 mg PO BID #20 tabs 06/07/23 fluticasone propionate 50 2 spray intranasal DAILY allergies 06/07/23 mcg/actuation nasal #16 grams spray,suspension (Flonase Allergy Relief) gabapentin 800 mg tablet 800 mg PO TID #90 tabs 06/07/23 hydrochlorothiazide 25 mg tablet 25 mg PO DAILY Hypertension 60 06/07/23 days #60 tabs lidocaine 5 % topical patch 1 patch topical DAILY #30 ea 06/07/23 mupirocin 2 % topical ointment 1 applic topical BID #22 grams 06/07/23 oxycodone 10 mg tablet 10 mg PO QID #120 tabs 06/07/23 pantoprazole 40 mg tablet,delayed 40 mg PO DAILY Reflux/Acid reflux 06/07/23 release (Protonix) 60 days #60 tabs trazodone 50 mg tablet See Rx Instructions .Route 06/07/23 .COMPLEX #30 tabs lisinopril 10 mg tablet See Rx Instructions .Route 07/05/23 .COMPLEX #30 tabs fwvadopwraxvvxm-zaoydklcpzbnhny-NS 5 ml PO Q6H PRN cold symptoms #118 07/13/23 2 mg-30 mg-10 mg/5 mL oral syrup mL (Bromfed DM) Allergies Allergy/AdvReac Type Severity Reaction Status Date / Time codeine [CODEINE] Allergy Unknown Verified
[2023-07-13 18:50] LABS: Influenza A, PCR Not Detected (NotDetected); Influenza B, PCR Not Detected (NotDetected)
[2023-07-13 19:24] LABS: Coronavirus 19, PCR Detected (NotDetected)
[2023-07-13 19:27] VITALS: BP 136/82; PULSE 68; RESP 16; TEMP 37.1; O2SAT 97
== END 2023-07-13 19:29 | disposition home or self-care (01) ==
PROVIDERS: Emergency Provider Emergency Medicine; PCP Internal Medicine
DX: U07.1 COVID-19 (principal); R51.9 Headache, unspecified; R50.9 Fever, unspecified; R05.9 Cough, unspecified; R09.81 Nasal congestion; F17.210 Nicotine dependence, cigarettes, uncomplicated; I10 Essential (primary) hypertension; K21.9 Gastro-esophageal reflux disease without esophagitis
CPT/HCPCS: 87636; 96372; 99283

== ENCOUNTER 2023-08-05 16:02 | Outpatient (CLI) | payer OTHER, SELFPAY ==
[2023-08-05 16:58] LABS: Hemoglobin A1C 5.6 % (4.0-6.0)
[2023-08-05 17:59] LABS: Cholesterol 221 mg/dl (140-200); Triglycerides 130 mg/dl (30-150); VLDL Cholesterol 26 mg/dL (0-40)
[2023-08-05 18:00] LABS: Chol/HDL Ratio 3.3 (1-3.5); HDL Cholesterol 67 mg/dl (40-60)
[2023-08-05 18:11] LABS: Direct LDL Cholesterol 120.12 mg/dL (100-129)
[2023-08-05 18:31] LABS: Thyroid Stimulating Hormone 2.01 uIU/mL (0.465-4.68)
[2023-08-05 19:26] LABS: Amphetamine/Metha Screen,Urine Positive ng/ml (<1000)
[2023-08-05 19:27] LABS: Barbiturates Screen,Urine Negative ng/ml (<200)
[2023-08-05 19:31] LABS: Benzodiazepines Screen,Urine Positive ng/ml (<200)
[2023-08-05 19:32] LABS: Cannabinoid Screen,Urine Negative ng/ml (<50); Cocaine Screen,Urine Negative ng/ml (<300)
[2023-08-05 19:33] LABS: Methadone Screen,Urine Negative ng/ml (<300); Opiate Screen,Urine Positive ng/ml (<300)
[2023-08-05 19:34] LABS: Phencyclidine Screen,Urine Negative ng/ml (<25)
[2023-08-10 12:41] LABS: Alprazolam Negative (Cutoff=100); Benzodiazepines Negative ng/mL (Cutoff=100); Clonazepam Negative (Cutoff=100); Flurazepam Negative (Cutoff=100); Lorazepam Negative (Cutoff=100); Midazolam Negative (Cutoff=100); Opiates Negative (Cutoff=100); Oxycodone (GC/MS) >3000 ng/mL (Cutoff=100); Oxymorphone (GC/MS) 924 ng/mL (Cutoff=100); Temazepam Negative (Cutoff=100); Triazolam Negative (Cutoff=100)
== END 2023-08-05 23:59 ==
LOC: LAB 16:02
PROVIDERS: PCP Internal Medicine; Visit Provider Family Medicine
DX: Z79.899 Other long term (current) drug therapy (principal)
CPT/HCPCS: 36415; 80061; 80307; 80346; 80361; 80365; 83036; 84443; G0480

== ENCOUNTER 2023-08-09 14:17 | Emergency (ER) | payer OTHER, SELFPAY ==
[2023-08-09 14:18] VITALS: BP 149/83; PULSE 94; RESP 18; TEMP 36.9; O2SAT 97; BMI 28.3
[2023-08-09 14:37] LABS: Coronavirus 19, PCR Not Detected (NotDetected); Influenza A, PCR Not Detected (NotDetected); Influenza B, PCR Not Detected (NotDetected)
[2023-08-09 15:00] VITALS: BP 160/92; PULSE 79; O2SAT 97
--- NOTE | 2023-08-09 15:06 | PC.NURSE ---
DR NICOLAS AT BEDSIDE
--- NOTE | 2023-08-09 15:11 | CT_ITS ---
FINAL REPORT TECHNIQUE: Axial imaging of the lumbar spine was obtained without contrast. Sagittal and coronal reformatted images were also obtained and reviewed. This study was performed with techniques to keep radiation doses as low as reasonably achievable (ALARA). Individualized dose reduction techniques using automated exposure control or adjustment of mA and/or kV according to the patient's size were employed. CLINICAL HISTORY: back pain, bilateral hip pain, acute on chronic COMPARISON: None FINDINGS: There is no fracture. The vertebral alignment is normal. There is mild degenerative change, as well as vacuum phenomenon at the L3-4 level..There is no evidence of significant central canal stenosis. T12-L1: No evidence of central canal stenosis or neural foraminal narrowing. L1-L2: An annular bulge is present with osteophytes. No evidence of central canal stenosis or neural foraminal narrowing. L2-L3: An annular bulge is present, with facet osteoarthropathy and osteophytes. There is moderate bilateral foraminal narrowing. L3-L4: An annular bulge is present, with facet osteoarthropathy and osteophytes. There is a left foraminal and posterolateral disc protrusion present, which produces moderate right and severe left neural foraminal narrowing. There is mild canal stenosis with an AP canal diameter of 7 mm. L4-L5: An annular bulge is present with facet osteoarthropathy. There is moderate right and mild left neural foraminal narrowing. L5-S1: An annular bulge is present with facet osteoarthropathy. There is mild bilateral neural foraminal narrowing. There is a small nodular opacity present at the right lung base, favor inflammatory. Follow-up CT is recommended if clinically indicated. IMPRESSION: Multilevel degenerative change without acute bony abnormality, most severe at the L3-4 level. Small nodular opacity in the left lung base, favor inflammatory etiology. Follow-up CT is suggested if clinically indicated for further evaluation.. Reviewed, Interpreted and Dictated by Akil Richards III, MD Transcribed by Carol Jean Authenticated and [facility]
--- NOTE | 2023-08-09 15:11 | CT_ITS ---
FINAL REPORT TECHNIQUE: Axial images through the pelvis were performed by computed tomography. Sagittal and coronal reconstruction images were performed. This study was performed with techniques to keep radiation doses as low as reasonably achievable (ALARA). Individualized dose reduction techniques using automated exposure control or adjustment of mA and/or kV according to the patient's size were employed. CLINICAL HISTORY: back pain, acute on chronic COMPARISON: None FINDINGS: There is no fracture or dislocation. There is a small chronic calcification adjacent to the right greater trochanter. There is also a small calcification adjacent to the posterior left acetabulum. Musculature is intact. Post hysterectomy. IMPRESSION: No acute bony abnormality. Chronic calcifications as above. Reviewed, Interpreted and Dictated by Akil Richards III, MD Transcribed by Zoë Palacio Authenticated and . [facility]
--- NOTE | 2023-08-09 15:29 | PC.NURSE ---
PT TO CT
--- NOTE | 2023-08-09 15:45 | [facility].EDGENADL ---
Discharge Plan Disposition Patient Disposition: Home, Self-Care Prescriptions Prescriptions: New prednisone 20 mg tablet 40 mg PO DAILY 5 Days Qty: 10 0RF No Action fluticasone propionate [Flonase Allergy Relief] 50 mcg/actuation spray,suspension 2 spray intranasal DAILY Qty: 16 3RF Rx Instructions: administer into each nostril alprazolam [Xanax] 1 mg tablet 1 mg PO BID Qty: 90 0RF gabapentin 800 mg tablet 800 mg PO TID Qty: 90 0RF oxycodone 10 mg tablet 10 mg PO QID Qty: 120 0RF lidocaine 5 % adhesive patch,medicated 1 patch topical DAILY Qty: 30 0RF Rx Instructions: leave on most painful area for up to 12 hrs lisinopril 10 mg tablet See Rx Instructions .ROUTE .COMPLEX Qty: 30 0RF Dose Instruction: TAKE ONE TABLET BY MOUTH ONCE A DAY Rx Instructions: TAKE ONE TABLET BY MOUTH ONCE A DAY Referrals Follow up/Referrals: Albert Walton DO [Primary Care Provider] - See instructions Activity Restrictions/Add. Instructions Additional Instructions/Restrictions: Call your family doctor to establish care for this visit to the emergency department and schedule follow-up within 48 hours to ensure improvement. If you have any worsening of your condition or any other concerning signs or symptoms, return to the emergency department or your primary care doctor for further evaluation. Take Tylenol 1000 mg every 6 hours (4 times daily) and ibuprofen 400 mg every 6 hours (4 times daily) as needed with food and water to prevent GI upset and kidney damage. Clinical Impressions Clinical Impression: Lumbar spine pain, Sciatica Discharge ED Provider: Quinton Tubbs General Adult HPI <Saul Murry MD - Last Filed: 08/09/23 16:58> General Chief complaint: PAIN Stated complaint: fever, chills, headache body aches Time Seen by Provider: 08/09/23 15:35 Mode of Arrival: Ambulatory Source of Information: Patient and Spouse Limitations: No Limitations Description of Symptoms (Recalled from ER Triage Doc. by RN): c/o a bursitis flare up, pt states the pain is her bilateral hips, left upper back leg, DANG, upper shoulders/back and neck since 2 days ago. History of Present Illness HPI narrative: Patient notes pain in her bilateral hips, back, consistent with reported history of bursitis for which she has had several years of symptoms. She reportedly takes home opiate analgesia with minimal improvement of symptoms. She states this is worsened by sitting up and she fell asleep yesterday sitting up while watching TV. This worsened her symptoms. Her pain was gradual in onset, constant, stable in course, severe, nonradiating. It is dull in nature. She denies any recreational drug use. She states she has had subjective fevers at home in the setting of recent COVID infection. She denies any incontinence, denies any numbness or tingling. Related Data Previous Rx's Medication Instructions Recorded fluticasone propionate 50 2 spray intranasal DAILY allergies 06/07/23 mcg/actuation nasal #16 grams spray,suspension (Flonase Allergy Relief) lisinopril 10 mg tablet See Rx Instructions .Route 07/05/23 .COMPLEX #30 tabs alprazolam 1 mg tablet (Xanax) 1 mg PO BID Anxiety #90 tabs 08/06/23 gabapentin 800 mg tablet 800 mg PO TID #90 tabs 08/06/23 lidocaine 5 % topical patch 1 patch topical DAILY #30 ea 08/06/23 oxycodone 10 mg tablet 10 mg PO QID #120 tabs 08/06/23 prednisone 20 mg tablet 40 mg PO DAILY 5 days #10 tabs 08/09/23 Allergies Allergy/AdvReac Type Severity Reaction Status Date / Time codeine [CODEINE] Allergy Unknown Verified 08/05/23 15:02 [facility] <Saul Murry MD - Last Filed: 08/09/23 16:58> [facility] Disclaimer: The information contained in this section may have been updated after the patient was seen, as this information can be updated by other users. 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 Sinusitis SIRS (systemic inflammatory response syndrome) Viral respiratory infection Surgical History History of section History of cholecystectomy History of hand surgery Family History Other Family history of hypertension Social History (Reviewed 01/15/24 @ 15:02 by ALLIE Reynoso Smoking Status: Current every day smoker tobacco type: cigarettes packs per day: 1 alcohol intake: current substance use type: denies use current occupational status: disabled Travel in the last 8 weeks: None household members: spouse and children housing: house lives independently: No marital status: education level: high school current occupation: [employer] current occupational exposures/hazards: No caffeine: Yes special charley needs: No agree to transfusion: No do you feel safe at home: Yes victim of physical abuse: No victim of emotional abuse: No victim of sexual abuse: No would you like helpful sources: No <Saul Murry MD - Last Filed: 08/09/23 16:58> ROS Obtained: Yes Systems reviewed as appropriate & no additional complaints except as documented As per HPI Physical Exam <Saul Murry MD - Last Filed: 08/09/23 16:58> General General appearance: alert and in distress Head Head exam: atraumatic and normocephalic Eye Eye exam: Present normal appearance Neck Neck exam: Present normal inspection Chest Chest inspection: Present normal inspection and symmetric chest wall rise Respiratory Respiratory exam: Present normal lung sounds bilaterally; Absent respiratory distress Cardiovascular Cardiovascular exam: Present regular rate and normal rhythm Abdominal Exam Abdominal exam: Present soft Back Exam Back exam: Present other (Bilateral paraspinal tenderness to palpation, lumbar tenderness to palpation, tenderness to palpation in bilateral posterior hips, compartments soft, no palpable step-offs or deformities, no saddle anesthesia, full strength in bilateral lower extremities) Neurological Exam Neurological exam: Present alert and oriented X3 Psychiatric Psychiatric exam: Present normal affect and normal mood Skin Skin exam: Present warm and dry Medical Decision Making <Saul Murry MD - Last Filed: 08/09/23 16:58> Medical Records Medical records reviewed: Yes I reviewed the patient's medical records. Gage Inquiry Pt receiving controlled substance: No Vital Signs: 08/09/23 14:18 08/09/23 15:00 08/09/23 16:01 Temperature 98.5 F Temperature Source Oral Pulse Rate 79 86 Pulse Rate [Left Radial] 94 H Respiratory Rate 18 Blood Pressure 160/92 H 122/58 L Blood Pressure [Right Arm] 149/83 H Blood Pressure Mean 86 Blood Pressure Mean [Right Arm] 105 Blood Pressure Source Blood Pressure Source [Right Arm] Automatic Cuff Blood Pressure Position Blood Pressure Position [Right Arm] Sitting 02 Sat by Pulse Oximetry 97 97 97 Oxygen Delivery Method Room Air Room Air Room Air 08/09/23 16:49 Temperature 98.1 F Temperature Source Oral Pulse Rate 72 Pulse Rate [Left Radial] Respiratory Rate 18 Blood Pressure 122/58 L Blood Pressure [Right Arm] Blood Pressure Mean Blood Pressure Mean [Right Arm] Blood Pressure Source Automatic Cuff Blood Pressure Source [Right Arm] Blood Pressure Position Sitting Blood Pressure Position [Right Arm] 02 Sat by Pulse Oximetry Oxygen Delivery Method Room Air Lab Data Lab Results 08/09/23 14:25: SARS-CoV-2 (PCR) Not detected, Influenza A Untype (PCR) Not detected, Influenza Type B (PCR) Not detected Orders (Tests/Meds): ED MEDICATIONS Discontinued Medications Generic Name Dose Route Start Last Admin Trade Name Freq PRN Reason Stop Dose Admin Hydrocodone Bitart/Acetaminophen 1 tab 08/09/23 15:44 08/09/23 15:49 Hydrocodone 10mg/Apap 325mg Tab PO 08/09/23 15:45 1 tab ONCE ONE Administration Dexamethasone 10 mg 08/09/23 15:10 08/09/23 15:51 Dexamethasone 4mg Tablet PO 08/09/23 15:11 10 mg ONCE ONE Administration Hydromorphone HCl 0.5 mg 08/09/23 15:10 08/09/23 16:06 Hydromorphone 4 Mg/Ml Syringe IV 08/09/23 15:11 Not Given ONCE ONE ORDERS Category Date Time Status CT bony pelvis Stat Cat Scan 08/09/23 15:[address] lumbar spine wo con Stat Cat Scan 08/09/23 15:11 Completed Rapid PCR Covid and Flu A/B Stat Lab 08/09/23 14:25 Completed Medical Decision Narrative: Patient with history and exam per above presenting for evaluation of acute on chronic back pain Diagnoses considered include Cauda equina syndrome, conus medullaris syndrome, nephrolithiasis, aortic aneurysm, fracture, tumor, pyelonephritis osteomyelitis, mechanical low back pain, sciatica, radiculopathy. In regard to this differential diagnosis, patient has minimal evidence to suggest cauda equina syndrome, given no incontinence, no saddle anesthesia, no motor weakness, chronic nature of patient's symptoms. No clinical evidence to suggest either ruptured aortic aneurysm given patient denies any risk factors, denies acute onset of pain, and in regard to fracture denies any trauma. Given symptoms consistent with a longstanding history of back pain, as well as absence of risk factors such as IV drug use, low index of suspicion for spinal epidural abscess at this time ED workup and treatment included: ED MEDICATIONS Discontinued Medications Generic Name Dose Route Start Last Admin Trade Name Abdirashid PRN Reason Stop Dose Admin Hydrocodone Bitart/Acetaminophen 1 tab 08/09/23 15:44 08/09/23 15:49 Hydrocodone 10mg/Apap 325mg Tab PO 08/09/23 15:45 1 tab ONCE ONE Administration Dexamethasone 10 mg 08/09/23 15:10 08/09/23 15:51 Dexamethasone 4mg Tablet PO 08/09/23 15:11 10 mg ONCE ONE Administration Hydromorphone HCl 0.5 mg 08/09/23 15:10 08/09/23 16:06 Hydromorphone 4 Mg/Ml Syringe IV 08/09/23 15:11 Not Given ONCE ONE ORDERS Category Date Time Status CT bony pelvis Stat Cat Scan 08/09/23 15:[address] lumbar spine wo con Stat Cat Scan 08/09/23 15:11 Completed Rapid PCR Covid and Flu A/B Stat Lab 08/09/23 14:25 Completed Labs were independently interpreted by me, significant for COVID not detected, influenza not detected Imaging pending at this time. Please refer to radiology report for full details. Care was transferred to incoming physician Dr. Suly Tubbs: I assume primary responsibility for this patient after signout from previous physician. Blood work negative, CT lumbar spine and pelvis unremarkable on independent interpretation. Lung nodule was relayed to patient, she voiced her understanding. Because patient at baseline without signs or symptoms of clinical decompensation, deemed appropriate for discharge. Results were relayed to patient who voiced understanding and were agreeable to outpatient management and follow up. At the time of discharge the patient was hemodynamically stable, tolerating PO, and mobilizing appropriately. <Quinton Tubbs MD - Last Filed: 08/09/23 16:45> Vital Signs: 08/09/23 14:18 08/09/23 15:00 08/09/23 16:01 Temperature 98.5 F Temperature Source Oral Pulse Rate 79 86 Pulse Rate [Left Radial] 94 H Respiratory Rate 18 Blood Pressure 160/92 H 122/58 L Blood Pressure [Right Arm] 149/83 H Blood Pressure Mean 86 Blood Pressure Mean [Right Arm] 105 Blood Pressure Source Blood Pressure Source [Right Arm] Automatic Cuff Blood Pressure Position Blood Pressure Position [Right Arm] Sitting 02 Sat by Pulse Oximetry 97 97 97 Oxygen Delivery Method Room Air Room Air Room Air 08/09/23 16:49 Temperature 98.1 F Temperature Source Oral Pulse Rate 72 Pulse Rate [Left Radial] Respiratory Rate 18 Blood Pressure 122/58 L Blood Pressure [Right Arm] Blood Pressure Mean Blood Pressure Mean [Right Arm] Blood Pressure Source Automatic Cuff Blood Pressure Source [Right Arm] Blood Pressure Position Sitting Blood Pressure Position [Right Arm] 02 Sat by Pulse Oximetry Oxygen Delivery Method Room Air Lab Data Lab Results 08/09/23 14:25: SARS-CoV-2 (PCR) Not detected, Influenza A Untype (PCR) Not detected, Influenza Type B (PCR) Not detected Orders (Tests/Meds): ED MEDICATIONS Discontinued Medications Generic Name Dose Route Start Last Admin Trade Name Freq PRN Reason Stop Dose Admin Hydrocodone Bitart/Acetaminophen 1 tab 08/09/23 15:44 08/09/23 15:49 Hydrocodone 10mg/Apap 325mg Tab PO 08/09/23 15:45 1 tab ONCE ONE Administration Dexamethasone 10 mg 08/09/23 15:10 08/09/23 15:51 Dexamethasone 4mg Tablet PO 08/09/23 15:11 10 mg ONCE ONE Administration Hydromorphone HCl 0.5 mg 08/09/23 15:10 08/09/23 16:06 Hydromorphone 4 Mg/Ml Syringe IV 08/09/23 15:11 Not Given ONCE ONE ORDERS Category Date Time Status CT bony pelvis Stat Cat Scan 08/09/23 15:[address] lumbar spine wo con Stat Cat Scan 08/09/23 15:11 Completed Rapid PCR Covid and Flu A/B Stat Lab 08/09/23 14:25 Completed Medical Decision Narrative: Patient with history and exam per above presenting for evaluation of Diagnoses considered include ED workup and treatment included: Labs were independently interpreted by me, significant for Imaging was independently visualized and interpreted by me, significant for . Please refer to radiology report for full details. My clinical impression at this time is most consistent with I discussed my clinical impression with patient and answered all questions. At this time, the evidence for any other entities in the differential is insufficient to warrant any further testing or ED observation. This was explained to the patient. The patient was advised that persistent or worsening symptoms require further evaluation. I confirmed the patient's understanding of this discussion. Suly: I assume primary responsibility for this patient after signout from previous physician. Blood work negative, CT lumbar spine and pelvis unremarkable on independent interpretation. Lung nodule was relayed to patient, she voiced her understanding. Because patient at baseline without signs or symptoms of clinical decompensation, deemed appropriate for discharge. Results were relayed to patient who voiced understanding and were agreeable to outpatient management and follow up. At the time of discharge the patient was hemodynamically stable, tolerating PO, and mobilizing appropriately. Critical Care <Saul Murry MD - Last Filed: 08/09/23 16:58> Critical Care Time Critical Care Time: No
[2023-08-09] MEDS: HYDROCODONE 10MG/APAP 325MG TAB 1 TAB PO (15:49)
[2023-08-09] MEDS: DEXAMETHASONE 4MG TABLET 10 MG PO (15:51)
--- NOTE | 2023-08-09 15:55 | PC.NURSE ---
Had to pull to more dexamethasone, patient dropped 1 and half in the floor.
[2023-08-09 16:01] VITALS: BP 122/58; PULSE 86; O2SAT 97
[2023-08-09 16:49] VITALS: BP 122/58; PULSE 72; RESP 18; TEMP 36.7; O2SAT 97
== END 2023-08-09 16:50 | disposition home or self-care (01) ==
PROVIDERS: Emergency Medicine; Emergency Provider Emergency Medicine; PCP Internal Medicine
DX: M54.40 Lumbago with sciatica, unspecified side (principal); M25.551 Pain in right hip; M25.552 Pain in left hip; R51.9 Headache, unspecified; M54.6 Pain in thoracic spine; M54.2 Cervicalgia; F17.210 Nicotine dependence, cigarettes, uncomplicated; Z86.16 Personal history of COVID-19; R50.9 Fever, unspecified
CPT/HCPCS: 72131; 72192; 87636; 99285

== ENCOUNTER 2024-01-22 12:43 | Emergency (ER) | payer OTHER, SELFPAY ==
[2024-01-22 12:50] VITALS: BP 132/68; PULSE 107; RESP 21; TEMP 36.7; O2SAT 96; BMI 27.4
--- NOTE | 2024-01-22 13:27 | EXP.UTC ---
Discharge Plan Disposition Patient Disposition: Home, Self-Care Condition: Good Prescriptions Prescriptions: New lisinopril 10 mg tablet 10 mg PO DAILY Qty: 30 0RF salicylic acid 6 % cream 1 applic topical HS Qty: 454 0RF No Action fluticasone propionate [Flonase Allergy Relief] 50 mcg/actuation spray,suspension 2 spray intranasal DAILY Qty: 16 3RF Rx Instructions: administer into each nostril Vraylar 1.5 mg capsule 1.5 mg PO DAILY alprazolam [Xanax] 1 mg tablet 1 mg PO BID Qty: 90 0RF gabapentin 800 mg tablet 800 mg PO TID Qty: 90 0RF oxycodone 10 mg tablet 10 mg PO QID Qty: 120 0RF lidocaine 5 % adhesive patch,medicated 1 patch topical DAILY Qty: 30 0RF Rx Instructions: leave on most painful area for up to 12 hrs albuterol sulfate 90 mcg/actuation HFA aerosol inhaler 2 puff inhalation Q4-6H PRN (Reason: shortness of breath or wheezing) Qty: 8.5 1RF pantoprazole 40 mg tablet,delayed release (DR/EC) See Rx Instructions .ROUTE .COMPLEX Qty: 30 0RF Dose Instruction: TAKE ONE TABLET BY MOUTH ONCE A DAY Rx Instructions: TAKE ONE TABLET BY MOUTH ONCE A DAY hydrochlorothiazide 25 mg tablet See Rx Instructions .ROUTE .COMPLEX Qty: 30 0RF Dose Instruction: TAKE ONE TABLET BY MOUTH ONCE A DAY FOR HYPERTENSION Rx Instructions: TAKE ONE TABLET BY MOUTH ONCE A DAY FOR HYPERTENSION lisinopril 10 mg tablet See Rx Instructions .ROUTE .COMPLEX Qty: 30 0RF Dose Instruction: TAKE ONE TABLET BY MOUTH ONCE A DAY Rx Instructions: TAKE ONE TABLET BY MOUTH ONCE A DAY buspirone 7.5 mg tablet 7.5 mg PO DAILY hydroxyzine HCl 25 mg tablet 25 mg PO DAILY Referrals Follow up/Referrals: Provider,Referral, MD [Primary Care Provider] - See instructions Activity Restrictions/Add. Instructions Additional Instructions/Restrictions: Make sure that finger is clean and dry prior to application of medication. Cover over site with Duct tape after application. Make appointment with new primary care provider. Take medication as prescribed. Keep appointment with ENT. Clinical Impressions Clinical Impression: Viral wart on finger, Essential hypertension Instructions Patient Instructions: Essential Hypertension, Warts (Alternative Therapy) Discharge ED Provider: Dunia Carrasco [facility] HPI General Stated complaint: cut on L middle finger Mode of Arrival: Ambulatory Source of Information: Patient Limitations: No Limitations Time Seen by Provider: 01/22/24 13:26 Description of Symptoms (Recalled from Triage Doc. by RN): PATIENT STATES SHE HAS A SPLIT TO TIP OF LEFT MIDDLE FINGER THAT HAS BEEN COMING AND GOING FOR SEVERAL MONTHS. PATIENT ALSO C/O BILATERAL EAR PAIN AND IS REQUESTING A REFILL ON HER BLOOD PRESSURE MEDICATION UNTIL SHE CAN ESTABLISH A NEW PCP HEENT Symptoms (Recalled from RN notes): Yes Resp Symptoms (Recalled from RN notes): No Skin Symptoms (Recalled from RN notes): Yes MS Symptoms (Recalled from RN notes): No Functional Status (Recalled from RN notes): WNL History of Present Illness Provider Complaint: Pt reports that she has not established with a new provider since her retired and needs a refill on her BP medication until she gets in with her new PCP. Pt further reports that her ears hurt. She states that she is taking antibiotics currently for URI. She states that she has an appointment with ENT on Saturday. Pt further states that she has a place on her right middle finger that looks like a fungus with a spilt in the center. Related Data Home Medications Medication Instructions Recorded Confirmed cariprazine 1.5 mg capsule 1.5 mg PO DAILY 09/06/23 09/06/23 (Vraylar) buspirone 7.5 mg tablet 7.5 mg PO DAILY 01/22/24 01/22/24 hydroxyzine HCl 25 mg tablet 25 mg PO DAILY 01/22/24 01/22/24 Previous Rx's Medication Instructions Recorded fluticasone propionate 50 2 spray intranasal DAILY allergies 06/07/23 mcg/actuation nasal #16 grams spray,suspension (Flonase Allergy Relief) alprazolam 1 mg tablet (Xanax) 1 mg PO BID Anxiety #90 tabs 08/06/23 gabapentin 800 mg tablet 800 mg PO TID #90 tabs 08/06/23 lidocaine 5 % topical patch 1 patch topical DAILY #30 ea 08/06/23 oxycodone 10 mg tablet 10 mg PO QID #120 tabs 08/06/23 albuterol sulfate 90 mcg/actuation 2 puff inhalation Q4-6H PRN 08/13/23 aerosol inhaler shortness of breath or wheezing #8.5 grams hydrochlorothiazide 25 mg tablet See Rx Instructions .Route 09/11/23 .COMPLEX #30 tabs lisinopril 10 mg tablet See Rx Instructions .Route 09/11/23 .COMPLEX #30 tabs pantoprazole 40 mg tablet,delayed See Rx Instructions .Route 09/11/23 release .COMPLEX #30 tabs lisinopril 10 mg tablet 10 mg PO DAILY #30 tabs 01/22/24 salicylic acid 6 % topical cream 1 applic topical HS #454 grams 01/22/24 Allergies Allergy/AdvReac Type Severity Reaction Status Date / Time codeine [CODEINE] Allergy Unknown Verified 09/06/23 13:44 Worker's Comp Is this a Worker's Comp case?: No [facility] Disclaimer: The information contained in this section may have been updated after the patient was seen, as this information can be updated by other users. 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 Sinusitis SIRS (systemic inflammatory response syndrome) Viral respiratory infection Surgical History History of section History of cholecystectomy History of hand surgery Family History Other Family history of hypertension Social History Smoking Status: Current every day smoker tobacco type: cigarettes packs per day: 1 alcohol intake: current substance use type: denies use current occupational status: disabled Travel in the last 8 weeks: None household members: spouse and children housing: house lives independently: No marital status: education level: high school current occupation: B[employer] current occupational exposures/hazards: No caffeine: Yes special charley needs: No agree to transfusion: No do you feel safe at home: Yes victim of physical abuse: No victim of emotional abuse: No victim of sexual abuse: No would you like helpful sources: No ROS Obtained: Yes All systems reviewed & no additional complaints except as documented Constitutional Constitutional: Reports system reviewed and no additional complaints, except as documented Eyes Eyes: Reports system reviewed and no additional complaints, except as documented ENT Ears, Nose, Mouth, and Throat: Reports system reviewed and no additional complaints, except as documented and Reports otalgia Cardiovascular Cardiovascular: Reports system reviewed and no additional complaints, except as documented Respiratory Respiratory: Reports system reviewed and no additional complaints, except as documented and Reports cough Gastrointestinal Gastrointestingal: Reports system reviewed and no additional complaints, except as documented Genitourinary Female Genitourinary: Reports system reviewed and no additional complaints, except as documented Musculoskeletal Musculoskeletal: Reports system reviewed and no additional complaints, except as documented Integumentary/Breasts Skin/Breast: Reports system reviewed and no additional complaints, except as documented, Reports dry skin and Reports other (split skin on tip of right middle finger) Neurologic Neurologic: Reports system reviewed and no additional complaints, except as documented Endocrine Endocrine: Reports system reviewed and no additional complaints, except as documented Hematologic/Lymphatic Henatologic/Lymphatic: Reports system reviewed and no additional complaints, except as documented Allergic/Immunologic Allergic/Immunologic: Reports system reviewed and no additional complaints, except as documented Physical Exam General General appearance: alert and in no apparent distress Head Head exam: atraumatic and normocephalic Eye Eye exam: Present normal appearance ENT ENT exam: Present normal oropharynx and mucous membranes moist Expanded ENT Exam External ear exam: Present normal external inspection TM/Canal exam: Left TM: bulging and effusion and Right TM: perforation and loss of landmarks Nasal speculum exam: Bilateral: normal Mouth exam: Present normal external inspection Teeth exam: Present normal inspection Throat exam: Present normal inspection Neck Neck exam: Present normal inspection; Absent lymphadenopathy Chest Chest inspection: Present normal inspection and symmetric chest wall rise Respiratory Respiratory exam: Present other (course sounds throughout.) Expanded Respiratory Exam Location: Left: wheezes, Right: wheezes and Upper: wheezes Cardiovascular Cardiovascular exam: Present regular rate and normal rhythm Abdominal Exam Abdominal exam: Present soft and normal bowel sounds Extremities Exam Extremities exam: Present normal inspection Back Exam Back exam: Present normal inspection Neurological Exam Neurological exam: Present alert and oriented X3 Psychiatric Psychiatric exam: Present normal affect and normal mood Skin Skin exam: Present warm, dry and other (wart noted on tip of right middle finger) Lymphatic Lymphatic Findings: no adenopathy Medical Decision Making Gage Inquiry Pt receiving controlled substance: No Gage was queried for this patient: No Vital Signs: 01/22/24 12:50 Temperature 98.1 F Temperature Source Oral Pulse Rate [Left Brachial] 107 H Respiratory Rate 21 Blood Pressure [Left Arm] 132/68 Blood Pressure Mean [Left Arm] 89 Blood Pressure Source [Left Arm] Automatic Cuff Blood Pressure Position [Left Arm] Sitting 02 Sat by Pulse Oximetry 96 Oxygen Delivery Method Room Air
[2024-01-22 13:43] VITALS: BP 132/68; PULSE 107; RESP 21; TEMP 36.7; O2SAT 96
== END 2024-01-22 13:49 | disposition home or self-care (01) ==
PROVIDERS: Emergency Provider Nurse Practitioner Family
DX: B07.9 Viral wart, unspecified (principal); I10 Essential (primary) hypertension; F17.210 Nicotine dependence, cigarettes, uncomplicated
CPT/HCPCS: 99204; 99212; G0463

== ENCOUNTER 2024-06-17 10:14 | Emergency (ER) | payer OTHER, SELFPAY ==
[2024-06-17 10:35] VITALS: BP 176/94; PULSE 75; RESP 23; TEMP 36.7; O2SAT 96; BMI 28.5
[2024-06-17 10:42] LABS: Coronavirus 19, PCR Not Detected (NotDetected); Influenza A, PCR Not Detected (NotDetected); Influenza B, PCR Not Detected (NotDetected)
--- NOTE | 2024-06-17 10:47 | ED_ITS ---
Discharge Plan Disposition Patient Disposition: Home, Self-Care Condition: Good Prescriptions Prescriptions: New albuterol sulfate 90 mcg/actuation HFA aerosol inhaler 2 puff inhalation Q4-6H PRN (Reason: shortness of breath or wheezing) Qty: 8.5 0RF guaifenesin [Mucinex] 1,200 mg tablet extended release 12hr 1,200 mg PO Q12H PRN (Reason: congestion) Qty: 20 0RF azithromycin [Zithromax Z-Juan] 250 mg tablet See Rx Instructions .ROUTE .COMPLEX 5 Days Qty: 6 0RF Rx Instructions: For 250 mg dose pack: take 500 mg today (day 1), then 250 mg for 4 days (days 2-5) prednisone 20 mg tablet 20 mg PO BID 5 Days Qty: 10 0RF No Action lisinopril 10 mg tablet 10 mg PO DAILY Rx Instructions: TAKE ONE TABLET BY MOUTH ONCE A DAY Referrals Follow up/Referrals: Provider,Referral, MD [Primary Care Provider] - See instructions Activity Restrictions/Add. Instructions Additional Instructions/Restrictions: * Start antibiotic today. Be sure to complete entire prescription even if feeling better * Monitor temp. Tylenol every 4 hours as needed and / or ibuprofen every 6 hours as needed ( As long as your primary care physician has told you that it ok to take both. For fever/aches/pains ER if no less than 101 despite Tylenol or Motrin * Humidifier/vaporizer or hot steamy shower * Inhaler every 4-6 hours as needed like we discussed. If unsure how to use it, ask pharmacist to demonstrate how. Should help open airways and improve cough, wheezing, and shortness of breath * Mucinex for your cough. Be sure to drink lots of water. *Start steroid tomorrow. Helps with inflammation therefore, cough and wheezing. Follow directions on the package. Reviewed side effects. Patient reports taking them before. Follow up IMMEDIATELY for new or worsening of symptoms OR no noticeable improvement over the next 48-72 hours. 911 immediately for any life threatening symptoms such as chest pain or difficulty breathing Clinical Impressions Clinical Impression: Sinusitis, Bronchitis Instructions Patient Instructions: DI for Sinusitis, Acute Bronchitis Print Language Print Language: Maldivian Discharge ED Provider: Shana Mendoza [facility] HPI General Stated complaint: soa cough runny nose Mode of Arrival: Ambulatory Source of Information: Patient Limitations: No Limitations Time Seen by Provider: 06/17/24 10:51 Description of Symptoms (Recalled from Triage Doc. by RN): PATIENT C/O SOA, COUGH WITH CLEAR MUCOUS, RUNNY NOSE, FEVER, CHILLS, AND BODY ACHES X 3 DAYS HEENT Symptoms (Recalled from RN notes): Yes Resp Symptoms (Recalled from RN notes): Yes Skin Symptoms (Recalled from RN notes): No MS Symptoms (Recalled from RN notes): No Functional Status (Recalled from RN notes): WNL History of Present Illness Provider Complaint: Patient states that she hasnt felt well for the last 3-4 days States that she has been having sinus pain and pressure and chest congestion States that she has coughing episodes that make her feel SOA and feel like she cannot get a good breath States she feels like she did when she had pneumonia before but not as bad Related Data Home Medications ?Medication ?Instructions ?Recorded ?Confirmed lisinopril 10 mg tablet 10 mg PO DAILY 06/17/24 06/17/24 Previous Rx's ?Medication ?Instructions ?Recorded albuterol sulfate 90 mcg/actuation 2 puff inhalation Q4-6H PRN 06/17/24 aerosol inhaler shortness of breath or wheezing #8.5 grams azithromycin 250 mg tablet See Rx Instructions PO .COMPLEX 5 06/17/24 (Zithromax Z-Juan) days #6 tabs guaifenesin 1,200 mg tablet, 1,200 mg PO Q12H PRN congestion 06/17/24 extended release 12 hr (Mucinex) #20 tabs prednisone 20 mg tablet 20 mg PO BID 5 days #10 tabs 06/17/24 Allergies Allergy/AdvReac Type Severity Reaction Status Date / Time codeine (CODEINE) Allergy Unknown Verified 01/30/24 15:37 Worker's Comp Is this a Worker's Comp case?: No [facility] Disclaimer: The information contained in this section may have been updated after the patient was seen, as this information can be updated by other users. Medical History (Updated 06/17/24 @ 11:13 by Shana Mendoza APRN) Depression Perforation of right tympanic membrane Ear problem Ear drainage right Viral respiratory infection Retraction of tympanic membrane Cervical strain, acute Acute otitis media Sinusitis Retraction of tympanic membrane of right ear History of hypertension History of anxiety Animal bite Diarrhea SIRS (systemic inflammatory response syndrome) Colitis Surgical History (Updated 06/17/24 @ 10:44 by Yasmine Nolan RN) History of hysterectomy History of section History of cholecystectomy History of hand surgery Family History Other Family history of hypertension Social History Smoking Status: Current every day smoker tobacco type: cigarettes packs per day: 1 alcohol intake: current substance use type: denies use current occupational status: disabled household members: spouse and children housing: house lives independently: No marital status: education level: high school current occupation: [employer] current occupational exposures/hazards: No caffeine: Yes special charley needs: No agree to transfusion: No do you feel safe at home: Yes victim of physical abuse: No victim of emotional abuse: No victim of sexual abuse: No would you like helpful sources: No ROS Obtained: Yes All systems reviewed & no additional complaints except as documented and Yes Systems reviewed as appropriate & no additional complaints except as documented Eyes Eyes: Reports system reviewed and no additional complaints, except as documented and Reports as per HPI ENT Ears, Nose, Mouth, and Throat: Reports system reviewed and no additional complaints, except as documented, Reports as per HPI, Reports sinus pain and Reports sinus pressure Cardiovascular Cardiovascular: Reports system reviewed and no additional complaints, except as documented and Reports as per HPI Respiratory Respiratory: Reports system reviewed and no additional complaints, except as documented, Reports as per HPI, Reports shortness of breath (at times after coughing episode), Reports chest congestion and Reports cough Gastrointestinal Gastrointestingal: Reports system reviewed and no additional complaints, except as documented and as per HPI Physical Exam General General appearance: alert and in no apparent distress ENT ENT exam: Present mucous membranes moist Expanded ENT Exam Nose exam: Present sinus tenderness Throat exam: Present other (PND noted) Chest Chest inspection: Present normal inspection and symmetric chest wall rise Respiratory Respiratory exam: Present normal lung sounds bilaterally and wheezes (mild with rhonchi that clears with cough); Absent respiratory distress Cardiovascular Cardiovascular exam: Present regular rate, normal rhythm and normal heart sounds Neurological Exam Neurological exam: Present alert, oriented X3 and normal gait Medical Decision Making Medical Records Screening: Per USPSTF and CDC recommendations, given the prevalence of disease in our region, it is our hospital?s policy to screen for HIV and viral Hepatitis for all patients aged 18 and over and those with ongoing risk factors. Gage Inquiry Pt receiving controlled substance: No Gage was queried for this patient: No Vital Signs: 06/17/24 10:35 Temperature 98.1 F Temperature Source Oral Pulse Rate [Left Brachial] 75 Respiratory Rate 23 Blood Pressure [Left Arm] 176/94 H Blood Pressure Mean [Left Arm] 121 Blood Pressure Source [Left Arm] Automatic Cuff Blood Pressure Position [Left Arm] Sitting 02 Sat by Pulse Oximetry 96 Orders (Tests/Meds): ORDERS Category Date Time Status Rapid PCR Covid and Flu A/B Stat Lab 06/17/24 10:30 Received Medical Decision Narrative: Discussed CXR with patient and she declined will cover for pneumonia since walking pneumonia is going around
[2024-06-17] MEDS: METHYLPREDNISOLONE SOD SUCC 125MG VIAL 125 MG IM (10:55)
[2024-06-17] MEDS: cefTRIAXone 1GM VIAL 1 GM IM (10:55)
[2024-06-17] MEDS: LIDOCAINE 1% 5ML PF VIAL IM (10:55)
[2024-06-17] MEDS: IPRATROPIUM/ALBUTEROL 3 ML NEB IH (10:57)
[2024-06-17 11:15] VITALS: BP 176/94; PULSE 75; RESP 23; TEMP 36.7; O2SAT 96
== END 2024-06-17 11:16 | disposition home or self-care (01) ==
PROVIDERS: Emergency Provider Nurse Practitioner
DX: J20.9 Acute bronchitis, unspecified (principal); J01.90 Acute sinusitis, unspecified
CPT/HCPCS: 87636; 94640; 96372; 99213; G0381; J0696; J2919; J7620

== ENCOUNTER 2025-01-18 14:21 | Emergency (ER) | payer OTHER, SELFPAY ==
--- OUTSIDE RECORDS SUMMARY | 2024-10-24 17:30 | XMS_ITS ---
Author Organization [facility] Address [address] [facility] [address] [place] [address] Care Team Providers Care Densitometer Reader Name Role Phone Tawanda Ramirez Primary Care Provider Migration, Provider Unavailable Unavailable REASON FOR VISIT [facility] Conversion Encounter Medications Medication SIG (Take, Route, Frequency, Duration) Notes Start Date End Date Status Vitamin D3 1.25 MG (82970 UT) 1 cap(s) orally twice weekly; Duration: [...] [facility] [address] [facility] [address] [place] [address] 10/24/2024 Provider Migration Depression with anxiety F41.8 [...] * Alena BROUSSARD MDOB:1969 (54 yo F)Acc No.[id number]:10/24/2024 Patient: Alena MOTLEY Provider: Constantino Mckeon :1970 A ge:54 Y S ex:Female Date:10/24/2024 Address:[address] [place] [phone] Pcp:Tawanda Ramirez Subjective: * Chief Complaints: * 1 . Multum To Medispan Conversion Encounter. * Medical History: * Medications: T aking Vitamin D3 1.25 MG (09255 UT) Capsule 1 cap(s) orally twice weekly Objective: * Vitals: Assessment: * Assessment: 1. D epression with anxiety - F41.8 2 . E ssential hypertension - I10 ? Plan: * Treatment: 2. E ssential hypertension Refill Lisinopril Tablet, 10 MG, 1 tab(s), orally, once a day, 30 days, 30 Tablet, Refills 2. ? * * Electronic signature of Prov ider Migration on 01/18/2025 at 02:31 PM EDT Sign off status: Pending * Provider: Constantino barney Migration Date: 0 10/24/2024 Generated for Aston bob/Rowdy/Angelica on: 0 01/18/2025 02:31 PM EDT
[2025-01-18] VITALS (8 sets, daily range): BP systolic 106–151; BP diastolic 68–92; PULSE 62–89; RESP 16–18; TEMP 36.7–36.8; O2SAT 94–99; BMI 28.7
--- OUTSIDE RECORDS SUMMARY | 2025-01-18 14:31 | XMS_ITS | Patient Health Record ---
Author Organization [facility] Address [address] [facility] [address] [facility] [address] [place] [address] Care Team Providers Care Group Controller Name Role Phone Tawanda Ramirez Primary Care Provider [phone] Migration, Provider Unavailable Unavailable Reason For Referral No Information Medications Medication SIG (Take, Route, Frequency, Duration) Notes Start Date End Date Status Vitamin D3 1.25 MG (68082 UT) 1 cap(s) orally twice weekly; Duration: [...] day prn; Duration: 30 day(s) 08/09/2020 Active Social History Tobacco Use: Social History Observation Description Date Details (start date - stop date) Current Smoker NA - NA Smoking: Question Answer Notes Are you a: current smoker How often do you smoke cigarettes? every day How many cigarettes a day do you smoke? 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) Active confirmed Problem Localized, primary osteoarthritis of the hand (369345371) Primary osteoarthritis, left hand (M19.042) Active confirmed Problem Trochanteric bursitis of right hip (938067388501944) Trochanteric bursitis, right hip (M70.61) Active confirmed Problem Trochanteric bursitis of left hip (802164036407731) Trochanteric bursitis, left hip (M70.62) Active confirmed Problem Tobacco use (502606975) Tobacco use (Z72.0) Active confirmed Problem Mixed anxiety and depressive disorder (828522887) Depression with anxiety (F41.8) Active confirmed Problem Vitamin D deficiency (34021029) Vitamin D deficiency (E55.9) Active confirmed Problem Essential hypertension (31420905) Essential hypertension (I10) Active confirmed Problem Cigarette smoker (10358586) Cigarette smoker (F17.210) Active confirmed Problem Peripheral edema (95216626) Peripheral edema (R60.9) Active confirmed Problem Paresthesia of upper extremity (08781859) Paresthesia of upper extremity (R20.2) Active confirmed Problem Carpal tunnel syndrome (40181380) Carpal tunnel syndrome on both sides (G56.03) Active confirmed Encounters Encounter Location Date Provider Diagnosis [facility] [address] [facility] [address] [place] [address] 10/24/2024 Provider Migration Depression with anxiety F41.8 and Essential hypertension I10 Assessments Encounter Date Diagnosis (ICD Code) Assessment Notes Treatment Notes Treatment Clinical Notes Section Notes 10/24/2024 Depression with anxiety (ICD-10 - F41.8) 10/24/2024 Essential hypertension (ICD-10 - I10) Plan Of Treatment Pending Test Test Name Order Date N-Urine Culture and Sensitivity 09/22/19 08 Mammogram : Bilateral 08/07/2019 C-CBC 02/27/2013 C-CMP 02/27/2013 C-TSH 02/27/2013 C-VITAMIN B12 02/27/2013 C-VITAMIN D, 25-HYDROXY 02/27/2013 C-DRUG SCREEN 12 PANEL 08/09/2020 M-Complete Blood Count Auto Diff 020 M-Complete Blood Count Auto Diff 020 M-Erythrocyte Sedimentation Rate 020 M-Comprehensive Metabolic Panel 12/16/19 20 M-Comprehensive Metabolic Panel 09/14/19 20 M-Hemoglobin A1C 09/14/2019 O-C-Xmpenryg Protein 12/16/2019 M-Lipid Panel 09/14/2019 M-Thyroid Stimulating Hormone 09/14/2019 M-Thyroid Stimulating Hormone 12/16/2019 M-Vitamin B12 12/16/2019 M-Vitamin D 25 Hydroxy 12/16/2019 M-RA Latex Turbid. 12/16/2019 Insurance Providers Payer Name Payer Address Payer Phone Subscriber Number Group Number Insured Name Patient Relationship to Insured Coverage Start Date Coverage End Date [employer] [facility] [address] [address] [place] [address] [phone] [id number] Alena Gannon Self - patient is the insured Medications Administered Medication Instructions Date of Administration Dosage Notes Cyanocobalamin/B-12 Pt's Own Medication 03/13/2013 Kenalog 03/13/2013 1 Medical (General) History Medical History History ICD Code HTN anxiety Tobacco use Overweight Chronic pain with hip bursitis Surgical History Surgery Date(Month/Year) cholecystectomy 2018 hysterectomy 2002 bladder repair gall bladder removal 2018 Hospitalization History Reason Date(Month/Year) dehydration
[2025-01-18 14:39] LABS: Microscopic, Urine URINE MICROSCOPIC (MICROSCOPIC)
--- NOTE | 2025-01-18 14:41 | CT_ITS ---
FINAL REPORT TECHNIQUE: After the administration of oral and intravenous contrast, axial images were obtained through the abdomen and pelvis by computed tomography. The study was performed with techniques to keep radiation dose as low as reasonably achievable, (ALARA). Individual dose reduction techniques using automated exposure control or adjustment of mA and/or kV according to the patient's size were employed. CLINICAL HISTORY: Right-sided flank pain, urinary frequency COMPARISON: 01/02/2021 FINDINGS: Abdomen: The lung bases are clear. There is mild fatty infiltration of the liver. The liver is enlarged, measuring 18 cm in the craniocaudal dimension. The gallbladder is absent. Calcified granulomas are noted in the spleen. The common bile duct measures up to 10 mm in diameter without evidence of choledocholithiasis. The pancreas and kidneys appear unremarkable. Bilateral adrenal hyperplasia is noted. The aorta is normal in caliber. There is no free fluid or adenopathy. Pelvis: The appendix is not identified. The urinary bladder is unremarkable. There is no free fluid or adenopathy. There is a large amount of stool present in a redundant colon. IMPRESSION: The liver is enlarged, with mild fatty infiltration. The gallbladder is surgically absent. The common bile duct measures up to 10 mm in diameter without evidence of choledocholithiasis. Bilateral adrenal hyperplasia is present. Reviewed, Interpreted and Dictated by Saturnino Nguyen MD Transcribed by Carol Jean Authenticated and [facility]
--- NOTE | 2025-01-18 14:42 | ED_ITS ---
Discharge Plan Disposition Patient Disposition: Home, Self-Care Condition: Good Prescriptions Prescriptions: New ondansetron 4 mg tablet,disintegrating 4 mg PO Q6H PRN (Reason: nausea and vomiting) Qty: 14 0RF No Action guaifenesin 600 mg tablet extended release 12hr PO lisinopril 10 mg tablet 10 mg PO DAILY Rx Instructions: TAKE ONE TABLET BY MOUTH ONCE A DAY albuterol sulfate 90 mcg/actuation HFA aerosol inhaler 2 puff inhalation Q4-6H PRN (Reason: shortness of breath or wheezing) Qty: 8.5 0RF Referrals Follow up/Referrals: Provider,Referral, MD [Primary Care Provider, Medical] - See instructions Activity Restrictions/Add. Instructions Additional Instructions/Restrictions: Please return to the emergency department with any worsening signs or symptoms, please follow-up with family doctor in the upcoming days/weeks. Clinical Impressions Clinical Impression: Right flank pain Instructions Patient Instructions: DI for Low Back Pain, DI for Flank Pain Print Language Print Language: Korean Discharge ED Provider: Quinton Tubbs General Adult HPI <YESIAC Lopez - Last Filed: 01/18/25 16:36> General Chief complaint: Back Pain/Injury Stated complaint: Possible Kidney Stone; R side Pain Time Seen by Provider: 01/18/25 14:25 Mode of Arrival: Ambulatory Source of Information: Patient Limitations: No Limitations History of Present Illness HPI narrative: 54-year-old female presents emergency department right-sided flank pain, increased urinary frequency since last night, she denies any trauma or injury per history, has no radicular type symptomatology, denies any upper or lower extremity weakness, denies any numbness or tingling, denies any fever chills chest pain shortness of breath, denies any overt abdominal pain, more localized to the right flank area, denies any hematuria melena hematochezia or hematemesis, constipation or diarrhea, denies any vaginal bleeding or other vaginal type symptomatology, patient is a current everyday smoker, occasionally utilizes marijuana, denies any other alcohol or drug use, she is currently on Suboxone therapy, other past medical history consistent with hypertension, degenerative disc disease of the spine, GERD, CHRISTOPHER. Initial triage vitals are unremarkable. Of note, patient states he did take a Percocet 10 mg this morning that she got from a neighbor, because the pain was so severe , patient states this did help with the pain. Onset (ago): hour(s) Related Data Home Medications ?Medication ?Instructions ?Recorded ?Confirmed lisinopril 10 mg tablet 10 mg PO DAILY 06/17/2408/23 guaifenesin 600 mg tablet, mg PO 09/16/24 09/16/24 extended release 12 hr Previous Rx's ?Medication ?Instructions ?Recorded albuterol sulfate 90 mcg/actuation 2 puff inhalation Q 4-6H PRN 06/17/24 aerosol inhaler shortness of breath or wheez ing #8.5 grams ondansetron 4 mg disintegrating 4 mg PO Q6H PRN nausea and 01/18/25 tablet vomiting #14 tabs Allergies Allergy/AdvReac Type Severity Reaction Status Date / Time codeine (CODEINE) Allergy Unknown Verified 09/16/24 15:05 [facility] <YESICA Lopez - Last Filed: 01/18/25 16:36> [facility] Disclaimer: The information contained in this section may have been updated after the patient was seen, as this information can be updated by other users. Medical History Depression Perforation of right tympanic membrane Ear problem Ear drainage right Viral respiratory infection Retraction of tympanic membrane Cervical strain, acute Acute otitis media Sinusitis Retraction of tympanic membrane of right ear History of hypertension History of anxiety Animal bite Diarrhea SIRS (systemic inflammatory response syndrome) Colitis Surgical History History of hysterectomy History of section History of cholecystectomy History of hand surgery Family History Other Family history of hypertension Social History Smoking Status: Current every day smoker tobacco type: cigarettes packs per day: 1 alcohol intake: current substance use type: denies use current occupational status: disabled Travel in the last 8 weeks?: None household members: spouse and children housing: house lives independently: No marital status: education level: high school current occupation: [employer] current occupational exposures/hazards: No caffeine: Yes special charley needs: No agree to transfusion: No do you feel safe at home: Yes victim of physical abuse: No victim of emotional abuse: No victim of sexual abuse: No would you like helpful sources: No Have you lived/traveled outside US in past 30 days?: No Contact w/someone who lives/traveled outside US past 30 days?: No Exposure to someone with infectious disease in past 14 days?: No Do you have a fever (greater than 100.4 F or 38 C)?: No Have you tested positive for COVID-19?: No Exposed to someone with COVID-19 in past 14 days?: No Do you have a sore throat?: No Do you have a cough?: No Do you have any weakness?: No Do you have any diarrhea?: No Are you experiencing any unusual bleeding?: No Do you have any muscle aches/pain?: No Do you have any abdominal pain?: No Are you experiencing loss of taste or smell?: No Other Medical History Have you received the Flu Vaccine for this season: Yes Have you received the Pneumonia Vaccine: No <YESICA Lopez - Last Filed: 01/18/25 16:36> ROS Obtained: Yes All systems reviewed & no additional complaints except as documented Physical Exam <YESICA Lopez - Last Filed: 01/18/25 16:36> General General appearance: alert and in no apparent distress Head Head exam: atraumatic and normocephalic Eye Eye exam: Present PERRL and EOMI ENT ENT exam: Present mucous membranes moist Neck Neck exam: Present normal inspection Chest Chest inspection: Present normal inspection and symmetric chest wall rise Respiratory Respiratory exam: Present normal lung sounds bilaterally; Absent respiratory distress Cardiovascular Cardiovascular exam: Present regular rate and normal rhythm Abdominal Exam Abdominal exam: Present soft; Absent tenderness, guarding, rebound or rigidity Extremities Exam Extremities exam: Present normal inspection Back Exam Back exam: Present normal inspection, full ROM and CVA tenderness (R); Absent CVA tenderness (L) Neurological Exam Neurological exam: Present alert and oriented X3 Psychiatric Psychiatric exam: Present normal affect Skin Skin exam: Present warm and dry Medical Decision Making <YESICA Lopez - Last Filed: 01/18/25 16:36> Medical Records Medical records reviewed: Yes I reviewed the patient's medical records. Screening: Per USPSTF and CDC recommendations, given the prevalence of disease in our region, it is our hospital?s policy to screen for HIV and viral Hepatitis for all patients aged 18 and over and those with ongoing risk factors. Gage Inquiry Pt receiving controlled substance: No Gage was queried for this patient: No Vital Signs: 01/18/25 14:29 01/18/25 14:34 01/18/25 14:43 Temperature 98.2 F 98.2 F Temperature Source Oral Oral Pulse Rate 82 89 Pulse Rate [Right] 89 Respiratory Rate 18 18 18 Blood Pressure 151/92 H 151/92 H Blood Pressure [Right Arm] 151/92 H Blood Pressure Mean 111 Blood Pressure Mean [Right Arm] 111 Blood Pressure Source Automatic Cuff Blood Pressure Source [Right Arm] Automatic Cuff Blood Pressure Position Supine Blood Pressure Position [Right Arm] Supine 02 Sat by Pulse Oximetry 99 98 98 Oxygen Delivery Method Room Air Room Air 01/18/25 14:45 01/18/25 15:01 01/18/25 15:31 Temperature Temperature Source Pulse Rate 62 64 64 Pulse Rate [Right] Respiratory Rate 18 16 18 Blood Pressure 151/69 H 132/79 106/68 L Blood Pressure [Right Arm] Blood Pressure Mean 108 103 80 Blood Pressure Mean [Right Arm] Blood Pressure Source Blood Pressure Source [Right Arm] Blood Pressure Position Blood Pressure Position [Right Arm] 02 Sat by Pulse Oximetry 95 96 95 Oxygen Delivery Method 01/18/25 15:45 01/18/25 16:52 Temperature 98.0 F Temperature Source Pulse Rate 65 65 Pulse Rate [Right] Respiratory Rate 16 16 Blood Pressure 131/84 131/84 Blood Pressure [Right Arm] Blood Pressure Mean 99 Blood Pressure Mean [Right Arm] Blood Pressure Source Blood Pressure Source [Right Arm] Blood Pressure Position Blood Pressure Position [Right Arm] 02 Sat by Pulse Oximetry 94 L Oxygen Delivery Method Lab Data Lab results reviewed: Yes I reviewed the patient's lab results. Lab Results 01/18/25 14:25: Urine Color Yellow, Urine Appearance Clear, Urine pH 6.0, Ur Specific [place] 1.015, Urine Protein Negative, Urine Glucose (UA) Negative, Urine Ketones Negative, Urine Blood 1+ A, Urine Nitrate Negative, Urine Bilirubin Negative, Urine Urobilinogen 0.2, Ur Leukocyte Esterase Negative, Urine WBC 3-5, Ur Squamous Epith Cells Occasional, Urine Bacteria 1+ 01/18/25 14:34: WBC 10.7, RBC 4.85, Hgb 14.4, Hct 44.3, MCV 91.3, MCH 29.7, MCHC 32.5, RDW 13.7, Plt Count 354, MPV 10.3, Neut % (Auto) 60.2, Lymph % (Auto) 31.6, [place] % (Auto) 6.2, Eos % (Auto) 1.0, Baso % (Auto) 0.5, Neut # (Auto) 6.4, Lymph # (Auto) 3.4, [place] # (Auto) 0.7, Eos # (Auto) 0.1, Baso # (Auto) 0.1, Sodium 138, Potassium 4.9, Chloride 98, Carbon Dioxide 31 H, Anion Gap 13.9, BUN 19 H, Creatinine 0.80, Estimated Creat Clear 92, Estimated GFR 74, Est GFR ( Amer) 90, Glucose 111 H, Lactate 1.1, Calcium 9.5, Total Bilirubin 0.4, AST 30, ALT 15, Alkaline Phosphatase 119, Total Protein 8.3 H D, Albumin 4.8, G lobulin 3.5 H, Albumin/Globulin Ratio 1.4, Lipase 29 01/18/25 14:34 01/18/25 14:34 Orders (Tests/Meds): ED MEDICATIONS Discontinued Medications Generic Name Dose Route Start Last Admin Trade Name Freq PRN Reason Stop Dose Admin Iopamidol 75 ml 01/18/25 15:10 01/18/25 15:11 Iopamidol-370 (76%);100ml Bottle IV 01/18/25 15:11 75 ml ONCE ONE Administration Ketorolac Tromethamine 15 mg 01/18/25 14:41 01/18/25 14:48 Ketorolac 30mg/Ml Vial IV 01/18/25 14:42 15 mg ONCE ONE Administration Ondansetron HCl 4 mg 01/18/25 14:41 01/18/25 14:48 Ondansetron 4mg/2ml Vial IV 01/18/25 14:42 4 mg ONCE ONE Administration Sodium Chloride 50 ml 01/18/25 15:10 01/18/25 15:11 0.9 % Sodium Chloride 50 Ml Vial IV 01/18/25 15:11 50 ml ONCE ONE Administration Sodium Chloride 10 ml 01/18/25 15:10 01/18/25 15:11 Sodium Chloride 0.9% 10ml Syr (Rad Only) IV 01/18/25 15:11 10 ml ONCE ONE Administration ORDERS Category Date Time Status CT abdomen pelvis w con Stat Cat Scan 01/18/25 14:41 Completed Complete Blood Count Auto Diff Stat Lab 01/18/25 14:34 Completed Comprehensive Metabolic Panel Stat Lab 01/18/25 14:34 Completed HIV Combo Stat Lab 01/18/25 14:43 Ordered Hepatitis C Ab Qual. W/ RFX Stat Lab 01/18/25 14:43 Ordered Lactic Acid Stat Lab 01/18/25 14:34 Completed Lipase Stat Lab 01/18/25 14:34 Completed Urinalysis and Microscopic Stat Lab 01/18/25 14:25 Completed Medical Decision Narrative: 54-year-old female presents emergency department with right-sided flank pain, urinary tested otology, differential diagnosis include but not limited to acute UTI, acute pyelonephritis, nephrolithiasis, ureterolithiasis, musculoskeletal flank pain/back pain, degenerative disc disease of spine, pancreatitis, diverticulitis, appendicitis, bowel obstruction, colitis, ileitis among others. I discussed patient case with and attending physician Will obtain basic laboratory studies, urinalysis, lipase level, lactate level, obtain CT and pelvis with contrast, will give 4 mg IV Zofran, for nausea, and 15 mg IV Toradol for pain. CMP notable for BUN is mildly elevated at 19, lactic and lipase is within normal limits, CBC unremarkable UA is notable for 1+ hematuria, negative nitrites, negative leukocyte Estrace. 3-5 WBCs, occasional squamous cells 1+ urine bacteria. I reviewed the patient's CT abdomen pelvis with contrast on the corresponding radiologic report, liver is enlarged with mild fatty infiltration the gallbladder surgically absent, the common bile duct measures up to 10 mm diameter without evidence of choledocholithiasis bilateral adrenal hyperplasia is present. Reexamination of the patient at approximately 4:30 PM, patient pain is improved, could have been small kidney stone with hematuria in the urine, recommend follow-up with PCP, recommend anti-inflammatory medications other at home medications for analgesia. Could be also acute exacerbation of the patient's lumbar spine pain. Patient was given strict ED return precautions. Patient voiced understanding and agreement with the current treatment plan/discharge plan. Harshad Mckeon: I was consulted by the YAYA, and we discussed the complexity of the problems being addressed. I approved the treatment and management plan for this patient's care in the emergency department, thus performing a substantive portion of the medical decision making. I agree with initial workup and imaging and this was largely pending at time of transition of care to the oncoming physician, Dr. Tubbs. <Harshad Mckeon MD - Last Filed: 01/18/25 14:53> Vital Signs: 01/18/25 14:29 01/18/25 14:34 01/18/25 14:43 Temperature 98.2 F 98.2 F Temperature Source Oral Oral Pulse Rate 82 89 Pulse Rate [Right] 89 Respiratory Rate 18 18 18 Blood Pressure 151/92 H 151/92 H Blood Pressure [Right Arm] 151/92 H Blood Pressure Mean 111 Blood Pressure Mean [Right Arm] 111 Blood Pressure Source Automatic Cuff Blood Pressure Source [Right Arm] Automatic Cuff Blood Pressure Position Supine Blood Pressure Position [Right Arm] Supine 02 Sat by Pulse Oximetry 99 98 98 Oxygen Delivery Method Room Air Room Air 01/18/25 14:45 01/18/25 15:01 01/18/25 15:31 Temperature Temperature Source Pulse Rate 62 64 64 Pulse Rate [Right] Respiratory Rate 18 16 18 Blood Pressure 151/69 H 132/79 106/68 L Blood Pressure [Right Arm] Blood Pressure Mean 108 103 80 Blood Pressure Mean [Right Arm] Blood Pressure Source Blood Pressure Source [Right Arm] Blood Pressure Position Blood Pressure Position [Right Arm] 02 Sat by Pulse Oximetry 95 96 95 Oxygen Delivery Method 01/18/25 15:45 01/18/25 16:52 Temperature 98.0 F Temperature Source Pulse Rate 65 65 Pulse Rate [Right] Respiratory Rate 16 16 Blood Pressure 131/84 131/84 Blood Pressure [Right Arm] Blood Pressure Mean 99 Blood Pressure Mean [Right Arm] Blood Pressure Source Blood Pressure Source [Right Arm] Blood Pressure Position Blood Pressure Position [Right Arm] 02 Sat by Pulse Oximetry 94 L Oxygen Delivery Method Lab Data Lab Results 01/18/25 14:25: Urine Color Yellow, Urine Appearance Clear, Urine pH 6.0, Ur Specific [place] 1.015, Urine Protein Negative, Urine Glucose (UA) Negative, Urine Ketones Negative, Urine Blood 1+ A, Urine Nitrate Negative, Urine Bilirubin Negative, Urine Urobilinogen 0.2, Ur Leukocyte Esterase Negative, Urine WBC 3-5, Ur Squamous Epith Cells Occasional, Urine Bacteria 1+ 01/18/25 14:34: WBC 10.7, RBC 4.85, Hgb 14.4, Hct 44.3, MCV 91.3, MCH 29.7, MCHC 32.5, RDW 13.7, Plt Count 354, MPV 10.3, Neut % (Auto) 60.2, Lymph % (Auto) 31.6, [place] % (Auto) 6.2, Eos % (Auto) 1.0, Baso % (Auto) 0.5, Neut # (Auto) 6.4, Lymph # (Auto) 3.4, [place] # (Auto) 0.7, Eos # (Auto) 0.1, Baso # (Auto) 0.1, Sodium 138, Potassium 4.9, Chloride 98, Carbon Dioxide 31 H, Anion Gap 13.9, BUN 19 H, Creatinine 0.80, Estimated Creat Clear 92, Estimated GFR 74, Est GFR ( Amer) 90, Glucose 111 H, Lactate 1.1, Calcium 9.5, Total Bilirubin 0.4, AST 30, ALT 15, Alkaline Phosphatase 119, Total Protein 8.3 H D, Albumin 4.8, G lobulin 3.5 H, Albumin/Globulin Ratio 1.4, Lipase 29 Orders (Tests/Meds): ED MEDICATIONS Discontinued Medications Generic Name Dose Route Start Last Admin Trade Name Freq PRN Reason Stop Dose Admin Iopamidol 75 ml 01/18/25 15:10 01/18/25 15:11 Iopamidol-370 (76%);100ml Bottle IV 01/18/25 15:11 75 ml ONCE ONE Administration Ketorolac Tromethamine 15 mg 01/18/25 14:41 01/18/25 14:48 Ketorolac 30mg/Ml Vial IV 01/18/25 14:42 15 mg ONCE ONE Administration Ondansetron HCl 4 mg 01/18/25 14:41 01/18/25 14:48 Ondansetron 4mg/2ml Vial IV 01/18/25 14:42 4 mg ONCE ONE Administration Sodium Chloride 50 ml 01/18/25 15:10 01/18/25 15:11 0.9 % Sodium Chloride 50 Ml Vial IV 01/18/25 15:11 50 ml ONCE ONE Administration Sodium Chloride 10 ml 01/18/25 15:10 01/18/25 15:11 Sodium Chloride 0.9% 10ml Syr (Rad Only) IV 01/18/25 15:11 10 ml ONCE ONE Administration ORDERS Category Date Time Status CT abdomen pelvis w con Stat Cat Scan 01/18/25 14:41 Completed Complete Blood Count Auto Diff Stat Lab 01/18/25 14:34 Completed Comprehensive Metabolic Panel Stat Lab 01/18/25 14:34 Completed HIV Combo Stat Lab 01/18/25 14:43 Ordered Hepatitis C Ab Qual. W/ RFX Stat Lab 01/18/25 14:43 Ordered Lactic Acid Stat Lab 01/18/25 14:34 Completed Lipase Stat Lab 01/18/25 14:34 Completed Urinalysis and Microscopic Stat Lab 01/18/25 14:25 Completed Medical Decision Narrative: 54-year-old female presents emergency department with right-sided flank pain, urinary tested otology, differential diagnosis include but not limited to acute UTI, acute pyelonephritis, nephrolithiasis, ureterolithiasis, musculoskeletal flank pain/back pain, degenerative disc disease of spine, pancreatitis, diverticulitis, appendicitis, bowel obstruction, colitis, ileitis among others. I discussed patient case with Will obtain basic laboratory studies, urinalysis, lipase level, lactate level, obtain CT and pelvis with contrast, will give 4 mg IV Zofran, for nausea, and 15 mg IV Toradol for pain. Harshad Mckeon: I was consulted by the YAYA, and we discussed the complexity of the problems being addressed. I approved the treatment and management plan for this patient's care in the emergency department, thus performing a substantive portion of the medical decision making. I agree with initial workup and imaging and this was largely pending at time of transition of care to the oncoming physician, Dr. Tubbs. <Quinton Tubbs MD - Last Filed: 01/18/25 19:05> Vital Signs: 01/18/25 14:29 01/18/25 14:34 01/18/25 14:43 Temperature 98.2 F 98.2 F Temperature Source Oral Oral Pulse Rate 82 89 Pulse Rate [Right] 89 Respiratory Rate 18 18 18 Blood Pressure 151/92 H 151/92 H Blood Pressure [Right Arm] 151/92 H Blood Pressure Mean 111 Blood Pressure Mean [Right Arm] 111 Blood Pressure Source Automatic Cuff Blood Pressure Source [Right Arm] Automatic Cuff Blood Pressure Position Supine Blood Pressure Position [Right Arm] Supine 02 Sat by Pulse Oximetry 99 98 98 Oxygen Delivery Method Room Air Room Air 01/18/25 14:45 01/18/25 15:01 01/18/25 15:31 Temperature Temperature Source Pulse Rate 62 64 64 Pulse Rate [Right] Respiratory Rate 18 16 18 Blood Pressure 151/69 H 132/79 106/68 L Blood Pressure [Right Arm] Blood Pressure Mean 108 103 80 Blood Pressure Mean [Right Arm] Blood Pressure Source Blood Pressure Source [Right Arm] Blood Pressure Position Blood Pressure Position [Right Arm] 02 Sat by Pulse Oximetry 95 96 95 Oxygen Delivery Method 01/18/25 15:45 01/18/25 16:52 Temperature 98.0 F Temperature Source Pulse Rate 65 65 Pulse Rate [Right] Respiratory Rate 16 16 Blood Pressure 131/84 131/84 Blood Pressure [Right Arm] Blood Pressure Mean 99 Blood Pressure Mean [Right Arm] Blood Pressure Source Blood Pressure Source [Right Arm] Blood Pressure Position Blood Pressure Position [Right Arm] 02 Sat by Pulse Oximetry 94 L Oxygen Delivery Method Lab Data Lab Results 01/18/25 14:25: Urine Color Yellow, Urine Appearance Clear, Urine pH 6.0, Ur Specific [place] 1.015, Urine Protein Negative, Urine Glucose (UA) Negative, Urine Ketones Negative, Urine Blood 1+ A, Urine Nitrate Negative, Urine Bilirubin Negative, Urine Urobilinogen 0.2, Ur Leukocyte Esterase Negative, Urine WBC 3-5, Ur Squamous Epith Cells Occasional, Urine Bacteria 1+ 01/18/25 14:34: WBC 10.7, RBC 4.85, Hgb 14.4, Hct 44.3, MCV 91.3, MCH 29.7, MCHC 32.5, RDW 13.7, Plt Count 354, MPV 10.3, Neut % (Auto) 60.2, Lymph % (Auto) 31.6, [place] % (Auto) 6.2, Eos % (Auto) 1.0, Baso % (Auto) 0.5, Neut # (Auto) 6.4, Lymph # (Auto) 3.4, [place] # (Auto) 0.7, Eos # (Auto) 0.1, Baso # (Auto) 0.1, Sodium 138, Potassium 4.9, Chloride 98, Carbon Dioxide 31 H, Anion Gap 13.9, BUN 19 H, Creatinine 0.80, Estimated Creat Clear 92, Estimated GFR 74, Est GFR ( Amer) 90, Glucose 111 H, Lactate 1.1, Calcium 9.5, Total Bilirubin 0.4, AST 30, ALT 15, Alkaline Phosphatase 119, Total Protein 8.3 H D, Albumin 4.8, G lobulin 3.5 H, Albumin/Globulin Ratio 1.4, Lipase 29 Orders (Tests/Meds): ED MEDICATIONS Discontinued Medications Generic Name Dose Route Start Last Admin Trade Name Freq PRN Reason Stop Dose Admin Iopamidol 75 ml 01/18/25 15:10 01/18/25 15:11 Iopamidol-370 (76%);100ml Bottle IV 01/18/25 15:11 75 ml ONCE ONE Administration Ketorolac Tromethamine 15 mg 01/18/25 14:41 01/18/25 14:48 Ketorolac 30mg/Ml Vial IV 01/18/25 14:42 15 mg ONCE ONE Administration Ondansetron HCl 4 mg 01/18/25 14:41 01/18/25 14:48 Ondansetron 4mg/2ml Vial IV 01/18/25 14:42 4 mg ONCE ONE Administration Sodium Chloride 50 ml 01/18/25 15:10 01/18/25 15:11 0.9 % Sodium Chloride 50 Ml Vial IV 01/18/25 15:11 50 ml ONCE ONE Administration Sodium Chloride 10 ml 01/18/25 15:10 01/18/25 15:11 Sodium Chloride 0.9% 10ml Syr (Rad Only) IV 01/18/25 15:11 10 ml ONCE ONE Administration ORDERS Category Date Time Status CT abdomen pelvis w con Stat Cat Scan 01/18/25 14:41 Completed Complete Blood Count Auto Diff Stat Lab 01/18/25 14:34 Completed Comprehensive Metabolic Panel Stat Lab 01/18/25 14:34 Completed HIV Combo Stat Lab 01/18/25 14:43 Ordered Hepatitis C Ab Qual. W/ RFX Stat Lab 01/18/25 14:43 Ordered Lactic Acid Stat Lab 01/18/25 14:34 Completed Lipase Stat Lab 01/18/25 14:34 Completed Urinalysis and Microscopic Stat Lab 01/18/25 14:25 Completed Medical Decision Narrative: 54-year-old female presents emergency department with right-sided flank pain, urinary tested otology, differential diagnosis include but not limited to acute UTI, acute pyelonephritis, nephrolithiasis, ureterolithiasis, musculoskeletal flank pain/back pain, degenerative disc disease of spine, pancreatitis, diverticulitis, appendicitis, bowel obstruction, colitis, ileitis among others. I discussed patient case with and attending physician Will obtain basic laboratory studies, urinalysis, lipase level, lactate level, obtain CT and pelvis with contrast, will give 4 mg IV Zofran, for nausea, and 15 mg IV Toradol for pain. CMP notable for BUN is mildly elevated at 19, lactic and lipase is within normal limits, CBC unremarkable UA is notable for 1+ hematuria, negative nitrites, negative leukocyte Estrace. 3-5 WBCs, occasional squamous cells 1+ urine bacteria. I reviewed the patient's CT abdomen pelvis with contrast on the corresponding radiologic report, liver is enlarged with mild fatty infiltration the gallbladder surgically absent, the common bile duct measures up to 10 mm diameter without evidence of choledocholithiasis bilateral adrenal hyperplasia is present. Reexamination of the patient at approximately 4:30 PM, patient pain is improved, could have been small kidney stone with hematuria in the urine, recommend follow-up with PCP, recommend anti-inflammatory medications other at home medications for analgesia. Could be also acute exacerbation of the patient's lumbar spine pain. Patient was given strict ED return precautions. Patient voiced understanding and agreement with the current treatment plan/discharge plan. Harshad Mckeon: I was consulted by the YAYA, and we discussed the complexity of the problems being addressed. I approved the treatment and management plan for this patient's care in the emergency department, thus performing a substantive portion of the medical decision making. I agree with initial workup and imaging and this was largely pending at time of transition of care to the oncoming physician, Dr. Tubbs. I was consulted by the YAYA, and we discussed the complexity of the problems being addressed. I approved the treatment and management plan for this patient's care in the Emergency Department, thus performing a substantive portion of the medical decision making. Quinton Tubbs MD Critical Care <Harshad Mckeon MD - Last Filed: 01/18/25 14:53> Critical Care Time Critical Care Time: No
[2025-01-18 14:45] LABS: Basophils # 0.1 K/mm3 (0-0.2); Basophils % 0.5 % (0.1-2.0); Eosinophils # 0.1 Kmm3 (0.0-0.4); Hematocrit 44.3 % (37.0-47.0); Hemoglobin 14.4 g/dL (12.2-16.2); Immature Granulocytes # 0.05 10^3uL; Immature Granulocytes % 0.5 %; Lymphocytes # 3.4 K/mm3 (0.7-4.5); Lymphocytes % 31.6 % (10-50); Mean Corpuscular HGB Conc 32.5 g/dL (31.8-35.4); Mean Corpuscular Hemoglobin 29.7 pg (27.0-31.2); Mean Corpuscular Volume 91.3 fl (81-99); Mean Platelet Volume 10.3 fl (7.4-10.4); Monocytes # 0.7 K/mm3 (0.1-1.0); Monocytes % 6.2 % (1.7-9.3); Neutrophils # 6.4 K/mm3 (1.8-7.8); Neutrophils % 60.2 % (37.0-80.0); Nucleated Red Blood Cells # 0 10^3/uL; Nucleated Red Blood Cells % 0 %; Platelet Count 354 K/mm3 (142-424); Red Blood Count 4.85 M/mm3 (4.20-5.40); Red Cell Distribution Width 13.7 % (11.5-17.5); Red Cell Distribution Width-SD 46.5 fL; White Blood Count 10.7 K/mm3 (4.8-10.8)
[2025-01-18] MEDS: ONDANSETRON 4MG/2ML VIAL 4 MG IV (14:48)
[2025-01-18] MEDS: KETOROLAC 30MG/ML VIAL 15 MG IV (14:48)
[2025-01-18 14:51] LABS: Albumin Level 4.8 g/dl (3.5-5.0); Chloride 98 mmol/L (98-107); Sodium 138 mmol/L (136-145)
[2025-01-18 14:52] LABS: Potassium 4.9 mmoL/L (3.5-5.1)
[2025-01-18 14:53] LABS: Lactic Acid 1.1 mmol/L (0.7-2.1)
[2025-01-18 14:54] LABS: Alanine Aminotransferase 15 U/L (12-78); Albumin/Globulin Ratio 1.4 (1.1-1.8); Alkaline Phosphatase 119 U/L (38-126); Anion Gap 13.9 mEq/L (5-15); Aspartate Amino Transferase 30 U/L (14-36); Bilirubin,Total 0.4 mg/dl (0.2-1.3); Blood Urea Nitrogen 19 mg/dl (7-17); Calcium 9.5 mg/dl (8.4-10.2); Carbon Dioxide 31 mmol/L (22.0-30.0); Creatinine Clearance Estimated 92 mL/min (50-200); Estimated Glomerular Filt Rate 74 ml/min (>60); GFR (African American) 90 ML/MIN (>60); Globulin 3.5 g/dL (1.3-3.2); Glucose 111 mg/dl (74-100); Lipase 29 U/L (23-300); Total Protein,Serum 8.3 g/dl (6.3-8.2)
[2025-01-18 14:59] LABS: Appearance,Urine CLEAR (Clear); Bilirubin,Urine Negative (Negative); Blood, Urine 1+ (Negative); Color,Urine YELLOW (Yellow); Glucose,Urine (UA) Negative (Negative); Ketones,Urine Negative (Negative); Leukocyte Esterase,Urine Negative (Negative); Nitrate,Urine Negative (Negative); Protein,Urine Negative (Negative); Specific Gravity, Urine 1.015 (1.005-1.030); Urobilinogen,Urine 0.2 EU/dl (0.2)
[2025-01-18] MEDS: 0.9 % SODIUM CHLORIDE 50 ML VIAL IV (15:11)
[2025-01-18] MEDS: IOPAMIDOL-370 (76%);100ML BOTTLE 75 ML IV (15:11)
[2025-01-18] MEDS: SODIUM CHLORIDE 0.9% 10ML SYR (RAD ONLY) 10 ML IV (15:11)
[2025-01-18 15:15] LABS: Bacteria,Urine 1+ /lpf; Squamous Epithelial Cell,Urine Occasional #/hpf (0-5)
== END 2025-01-18 16:53 | disposition home or self-care (01) ==
PROVIDERS: Physician Assistant; Emergency Provider Emergency Medicine
DX: R10.31 Right lower quadrant pain (principal); F17.210 Nicotine dependence, cigarettes, uncomplicated
CPT/HCPCS: 74177; 80053; 81001; 83605; 83690; 85025; 96374; 96375; 99284; J1885; J2405; Q9967

== ENCOUNTER 2025-03-02 16:00 | Outpatient (CLI) | payer OTHER, SELFPAY ==
--- OUTSIDE RECORDS SUMMARY | 2024-10-24 17:30 | XMS_ITS ---
Author Organization [facility] Address [address] [facility] [address] [place] [address] Care Team Providers Care Form Raiser Name Role Phone Tawanda Ramirez Primary Care Provider [phone] Migration, Provider Unavailable Unavailable REASON FOR VISIT [facility] Conversion Encounter Medications Medication SIG (Take, Route, Frequency, Duration) Notes Start Date End Date Status Vitamin D3 1.25 MG (23086 UT) 1 cap(s) orally twice weekly; Duration: [...] [facility] [address] [facility] [address] [place] [address] 10/24/2024 Provider Migration Depression with anxiety F41.8 [...] * Alena BROUSSARD MDOB:1969 (54 yo F)Acc No.[id number]:10/24/2024 Patient: Alena MOTLEY Provider: Constantino Mckeon :1970 A ge:54 Y S ex:Female Date:10/24/2024 Address:[address] [place] [phone] Pcp:Tawanda Ramirez Subjective: * Chief Complaints: * 1 . Multum To Medispan Conversion Encounter. * Medical History: * Medications: T aking Vitamin D3 1.25 MG (85205 UT) Capsule 1 cap(s) orally twice weekly Objective: * Vitals: Assessment: * Assessment: 1. D epression with anxiety - F41.8 2 . E ssential hypertension - I10 ? Plan: * Treatment: 2. E ssential hypertension Refill Lisinopril Tablet, 10 MG, 1 tab(s), orally, once a day, 30 days, 30 Tablet, Refills 2. ? * * Electronic signature of Prov ider Migration on 03/03/2025 at 11:07 AM EDT Sign off status: Pending * Provider: Constantino barney Migration Date: 0 10/24/2024 Generated for Aston bob/Rowdy/Angelica on: 0 03/03/2025 11:07 AM EDT
--- OUTSIDE RECORDS SUMMARY | 2025-03-03 11:07 | XMS_ITS | Patient Health Record ---
Author Organization [facility] Address [address] [facility] [address] [place] [address] Care Team Providers Care Chemical Production Technician Name Role Phone Tawanda Ramirez Primary Care Provider Migration, Provider Unavailable Unavailable Reason For Referral No Information Medications Medication SIG (Take, Route, Frequency, Duration) Notes Start Date End Date Status Vitamin D3 1.25 MG (96184 UT) 1 cap(s) orally twice weekly; Duration: [...] W/U Status Risk Notes Problem Chronic pain (65694430) Other chronic pain (G89.29) Active confirmed Problem Localized, primary osteoarthritis of the hand (666149926) Primary osteoarthritis, right hand (M19.041) Active confirmed Problem Localized, primary osteoarthritis of the hand (332991165) Primary osteoarthritis, left hand (M19.042) Active confirmed Problem Trochanteric bursitis of right hip (527208068496193) Trochanteric bursitis, right hip (M70.61) Active confirmed Problem Trochanteric bursitis of left hip (648916687603056) Trochanteric bursitis, left hip (M70.62) Active confirmed Problem Tobacco use (195774501) Tobacco use (Z72.0) Active confirmed Problem Mixed anxiety and depressive disorder (889474912) Depression with anxiety (F41.8) Active confirmed Problem Vitamin D deficiency (11490056) Vitamin D deficiency (E55.9) Active confirmed Problem Essential hypertension (84300243) Essential hypertension (I10) Active confirmed Problem Cigarette smoker (99348134) Cigarette smoker (F17.210) Active confirmed Problem Peripheral edema (50360305) Peripheral edema (R60.9) Active confirmed Problem Paresthesia of upper extremity (89509626) Paresthesia of upper extremity (R20.2) Active confirmed Problem Carpal tunnel syndrome (59410827) Carpal tunnel syndrome on both sides (G56.03) Active confirmed Encounters Encounter Location Date Provider Diagnosis [facility] [address] [facility] [address] [place] [address] 10/24/2024 Provider Migration Depression with anxiety F41.8 [...] Metabolic Panel 09/14/19 20 M-Hemoglobin A1C 09/14/2019 L-H-Ndcdnpbm Protein 12/16/2019 M-Lipid Panel 09/14/2019 M-Thyroid Stimulating Hormone 09/14/2019 M-Thyroid Stimulating Hormone 12/16/2019 M-Vitamin B12 12/16/2019 M-Vitamin D 25 Hydroxy 12/16/2019 M-RA Latex Turbid. 12/16/2019 Insurance Providers Payer Name Payer Address Payer Phone Subscriber Number Group Number Insured Name Patient Relationship to Insured Coverage Start Date Coverage End Date [employer] [facility] [address] [address] [place] [phone] [id number] Alena Gannon Self - patient is the [...]
== END 2025-03-02 23:59 | disposition home or self-care (01) ==
LOC: LAB.DROPOF 03-03 11:02
PROVIDERS: PCP Nurse Practitioner; Visit Provider Nurse Practitioner
DX: H60.91 Unspecified otitis externa, right ear (principal)
CPT/HCPCS: 87070; 87077; 87186

== ENCOUNTER 2025-04-21 13:05 | Outpatient (CLI) | payer OTHER, SELFPAY ==
--- NOTE | 2025-04-21 13:05 | XR_ITS ---
FINAL REPORT CLINICAL HISTORY: left knee pain COMPARISON: None FINDINGS: LEFT KNEE Three views demonstrate no acute fracture or dislocation. The medial and lateral compartment joint spaces appear preserved. No acute soft tissue abnormality is seen. IMPRESSION: No acute bony abnormality. Reviewed, Interpreted and Dictated by Saturnino Nguyen MD Transcribed by Frannie Rowan Authenticated and [facility]
== END 2025-04-21 23:59 | disposition home or self-care (01) ==
LOC: RAD 13:05
PROVIDERS: Visit Provider Physician Assistant
DX: M25.562 Pain in left knee (principal)
CPT/HCPCS: 73562

== ENCOUNTER 2025-05-05 15:44 | Outpatient (CLI) | payer OTHER, SELFPAY ==
--- OUTSIDE RECORDS SUMMARY | 2024-10-24 17:30 | XMS_ITS ---
Author Organization [facility] Address [address] [facility] [address] [place] [address] Care Team Providers Care Rivet Bucker Name Role Phone Tawanda Ramirez Primary Care Provider Migration, Provider Unavailable Unavailable [facility]IT [facility] Conversion Encounter Medications Medication SIG (Take, Route, Frequency, Duration) Notes Start Date End Date Status Vitamin D3 1.25 MG (93177 UT) 1 cap(s) orally twice weekly; Duration: 30 day(s) 05/26/2020 Active Amitriptyline HCl 50 MG 1 tab(s) orally once a day (at bedtime); Duration: 30 days Active Lisinopril 10 MG 1 tab(s) orally once a day; Duration: 30 days Active FLUoxetine HCl 40 MG 1 cap(s) orally onc e a day; Duration: 30 day(s) 08/16/2020 Active hydrOXYzine HCl 25 MG 1 tab(s) orally 3 times a day prn; Duration: 30 day(s) 08/09/2020 Active Encounters Encounter Location Date Provider Diagnosis [facility] [address] [facility] [address] [place] [address] 10/24/2024 Provider Migration Depression with anxiety F41.8 and Essential hypertension I10 Assessments Encounter Date Diagnosis (ICD Code) Assessment Notes Treatment Notes Treatment Clinical Notes Section Notes 10/24/2024 Depression with anxiety (ICD-10 - F41.8) 10/24/2024 Essential hypertension (ICD-10 - I10) Plan Of Treatment Medication Medication Name Sig Start Date Stop Date Notes Amitriptyline HCl 50 MG 1 tab(s) orally once a day (at bedtime); Duration: 30 days Lisinopril 10 MG 1 tab(s) orally once a day; Duration: 30 days FLUoxetine HCl 40 MG 1 cap(s) orally onc e a day; Duration: 30 day(s) 08/16/2020 hydrOXYzine HCl 25 MG 1 tab(s) orally 3 times a day prn; Duration: 30 day(s) 08/09/2020 Progress Notes * Alena BROUSSARD MDOB:1969 (54 yo F)Acc No.[id number]:10/24/2024 Patient: Cheko MOTLEYy Bahman Provider: Constantino Mckeon :1970 A ge:54 Y S ex:Female Date:10/24/2024 Address:[address] [place] [id number] Pcp:Tawanda Ramirez Subjective: * Chief Complaints: * 1 . Multum To Medispan Conversion Encounter. * Medical History: * Medications: T aking Vitamin D3 1.25 MG (32045 UT) Capsule 1 cap(s) orally twice weekly Objective: * Vitals: Assessment: * Assessment: 1. D epression with anxiety - F41.8 2 . E ssential hypertension - I10 ? Plan: * Treatment: 2. E ssential hypertension Refill Lisinopril Tablet, 10 MG, 1 tab(s), orally, once a day, 30 days, 30 Tablet, Refills 2. ? * * Electronic signature of Prov ider Migration on 05/05/2025 at 03:52 PM EDT Sign off status: Pending * Provider: Constantino Mckeon Date: 0 10/24/2024 Generated for Aston bob/Rowdy/Walkersmfrancisco on: 1 03:52 PM EDT
--- OUTSIDE RECORDS SUMMARY | 2025-05-05 15:52 | XMS_ITS ---
Author Organization [facility] Address [address] [place] [address] Phone Care Team Providers Care Collaborative Teacher Name Role Phone Priscilla LUONG, Rigo Shaw Unavailable [phone] Plan of Treatment Future Appointments Date Time Location Provi yennifer Physician Specified 05/18/2025 10:[facility] VIMAL Jc MD Last Documented On 2:10PM ; [facility] Assessments Includes: Assessments for all patient encounters No Assessments Recorded Medical Equipment - Implanted Devices Includes: Current and historical Devices No Medical Equipment Recorded Medications Administered Includes: Administered Medications in patient's chart No Administered Medications Recorded Results Includes: Results from 05/05/2024 through 05/05/2025 No Results Recorded For Specified Dates History of Present Illness History of Present Illness not supported for this document type No History of Present Illness Recorded Social History No Social History Recorded - Smoking Status Unknown Medical History Includes: Medical History in patient's chart No Medical History Recorded Family History Includes: Family History in patient's chart No Family History Recorded Review of Systems Review of Systems not supported for this document type No Review of Systems Recorded Mental Status No Mental Status Recorded Functional Status No Functional Status Recorded Physical Exam Physical Exam not supported for this document type No Physical Exam Recorded Insurance Includes: Active Insurance Policies Plan Name Member ID Group # Subscriber Relationship Effect jan Dates 1 - [employer] [facility] [id number] Alenakaylan Starkchacha Self Clinical Notes Includes: Signed Clinical Notes starting from 07/05/2022 No Clinical Notes Recorded
--- OUTSIDE RECORDS SUMMARY | 2025-05-05 15:52 | XMS_ITS ---
Care Plan - [facility] Created on: May 05, 2025 Alena Gannon : 1970 Sex: Female Author Organization [facility] Address [address] [place] [address] Phone Care Team Providers Care Cane Weigher Helper Name Role Phone Priscilla LUONG, Rigo Shaw Unavailable [phone]
--- OUTSIDE RECORDS SUMMARY | 2025-05-05 15:53 | XMS_ITS | Patient Health Record ---
[facility] [address] [facility] [address] [facility] [address] [place] [id number] Care Team Providers Care Jewel Sawyer Name Role Phone Herb Cunningham Primary Care Provider [phone] Reason For Referral No Information Medications Medication SIG (Take, Route, Fr equency, Duration) Notes Start Date End Date Status Effexor XR 150 MG 1 cap(s) orally once a day Active Methocarbamol 750 MG 1 tab orally qhs Active Plan Of Treatment No Information Insurance Providers Payer Name Payer Address Payer Phone Subscriber Number Group Number Insured Name Patient Relationship to Insured Coverage Start Date Coverage End Date [employer] [address] [place] [address] [id number] Thai Gannon Spouse - patient is the spouse of the insured Medical (General) History Surgical History Surgery Date(Month/Year) c/s x 4 partial hyst bladder sx laporoscopy to remove scar tissue
--- OUTSIDE RECORDS SUMMARY | 2025-05-05 15:53 | XMS_ITS | Patient Health Record ---
Author Organization [facility] Address [address] [facility] [facility] [address] [facility] [address] [place] [address] Care Team Providers Care Recording Studio Setup Worker Name Role Phone Tawanda Ramirez Primary Care Provider [phone] Migration, Provider Unavailable Unavailable Reason For Referral No Information Medications Medication SIG (Take, Route, Frequency, Duration) Notes Start Date End Date Status Vitamin D3 1.25 MG (07283 UT) 1 cap(s) orally twice weekly; Duration: [...] W/U Status Risk Notes Problem Chronic pain (01324552) Other chronic pain (G89.29) Active confirmed Problem Localized, primary osteoarthritis of the hand (039554172) Primary osteoarthritis, right hand (M19.041) Active confirmed Problem Localized, primary osteoarthritis of the hand (628934259) Primary osteoarthritis, left hand (M19.042) Active confirmed Problem Trochanteric bursitis of right hip (363249847593829) Trochanteric bursitis, right hip (M70.61) Active confirmed Problem Trochanteric bursitis of left hip (115530819899681) Trochanteric bursitis, left hip (M70.62) Active confirmed Problem Tobacco use (817985877) Tobacco use (Z72.0) Active confirmed Problem Mixed anxiety and depressive disorder (275941624) Depression with anxiety (F41.8) Active confirmed Problem Vitamin D deficiency (22319235) Vitamin D deficiency (E55.9) Active confirmed Problem Essential hypertension (13364835) Essential hypertension (I10) Active confirmed Problem Cigarette smoker (90626488) Cigarette smoker (F17.210) Active confirmed Problem Peripheral edema (97776467) Peripheral edema (R60.9) Active confirmed Problem Paresthesia of upper extremity (57023809) Paresthesia of upper extremity (R20.2) Active confirmed Problem Carpal tunnel syndrome (67552341) Carpal tunnel syndrome on both sides (G56.03) Active confirmed Encounters Encounter Location Date Provider Diagnosis [facility] [address] [facility] [address] [place] [address] 10/24/2024 Provider Migration Depression with anxiety F41.8 [...] Metabolic Panel 09/14/19 20 M-Hemoglobin A1C 09/14/2019 U-J-Yeiiuglt Protein 12/16/2019 M-Lipid Panel 09/14/2019 M-Thyroid Stimulating Hormone 09/14/2019 M-Thyroid Stimulating Hormone 12/16/2019 M-Vitamin B12 12/16/2019 M-Vitamin D 25 Hydroxy 12/16/2019 M-RA Latex Turbid. 12/16/2019 Insurance Providers Payer Name Payer Address Payer Phone Subscriber Number Group Number Insured Name Patient Relationship to Insured Coverage Start Date Coverage End Date [employer] [facility] [address] [address] [place] [phone] [id number] Alena Gannon Self - patient is the [...]
--- NOTE | 2025-05-05 16:15 | MR_ITS ---
PROCEDURE INFORMATION: Exam: MR Left Lower Extremity Joint Without Contrast, Knee Exam date and time: 05/05/2025 3:59 PM Age: 54 years old Clinical indication: Pain; Knee; Left; Additional info: Left knee pain when bending, medial pain, nki TECHNIQUE: Imaging protocol: Magnetic resonance imaging of the left lower extremity joint without contrast. Exam focused on the knee. COMPARISON: CR XR KNEE LT 3V 04/21/2025 12:59 PM FINDINGS: Bones/joints: Unremarkable. No bone abnormalities. 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 No joint effusion. Bursae: There is a non ruptured Valle's cyst measuring 0.8 x 1.0 x 3.2 cm. Medial meniscus: Horizontal tear extending to the undersurface, posterior horn and body, medial meniscus, image 4/9. Lateral meniscus: The lateral meniscus is unremarkable. No tear. Anterior cruciate ligament: The anterior cruciate ligament is intact and unremarkable. Posterior cruciate ligament: Posterior cruciate ligament is intact and unremarkable. Medial capsule and supporting structures: Unremarkable. No tear. Lateral capsule and supporting structures: Unremarkable. No tear. Extensor mechanism of knee: Unremarkable. No tear. Soft tissues: Unremarkable. IMPRESSION: Tear of the medial meniscus as described. Degenerative changes as described.
== END 2025-05-05 23:59 | disposition home or self-care (01) ==
LOC: RAD 15:45
PROVIDERS: Visit Provider Physician Assistant
DX: S83.242A Other tear of medial meniscus, current injury, left knee, initial encounter (principal); M17.12 Unilateral primary osteoarthritis, left knee
CPT/HCPCS: 73721